=== PATIENT | female | born 1950 | race Caucasian/White ===

== ENCOUNTER → 2017-11-09 | Outpatient (CLI) | payer MEDICARE ==
--- NOTE | 2017-11-10 10:03 | MM ---
Reason for exam: screening (asymptomatic). Last mammogram was performed 1 year and 4 months ago. History: Family history of breast cancer in mother at age 72 and breast cancer in sister at age 62. Physical Findings: A clinical breast exam by your physician is recommended on an annual basis and results should be correlated with mammographic findings. MG 3D Screening Mammo W/Cad Bilateral CC and MLO view(s) were taken. Prior study comparison: June 26, 2016, bilateral MG screening mammo w CAD. August 27, 2015, right breast MG 3d diag mammo w/cad RT. The breast tissue is heterogeneously dense. This may lower the sensitivity of mammography. There is no discrete abnormality. ASSESSMENT: Negative, BI-RAD 1 RECOMMENDATION: Routine screening mammogram of both breasts in 1 year.
== END | disposition home or self-care (01) ==
LOC: RADMAMWWP 07:18
PROVIDERS: ATTEND Family Medicine
DX: Z12.31 Encounter for screening mammogram for malignant neoplasm of breast (principal)
CPT/HCPCS: 77063; 77067

== ENCOUNTER → 2019-03-31 | Outpatient (CLI) | payer MEDICARE ==
--- NOTE | 2019-04-01 09:46 | MM ---
Reason for exam: screening (asymptomatic). Last mammogram was performed 1 year and 5 months ago. History: Family history of breast cancer in mother at age 72 and breast cancer in sister at age 62. Physical Findings: A clinical breast exam by your physician is recommended on an annual basis and results should be correlated with mammographic findings. MG 3D Screening Mammo W/Cad Bilateral CC and MLO view(s) were taken. Prior study comparison: November 09, 2017, bilateral MG 3d screening mammo w/cad. June 26, 2016, bilateral MG screening mammo w CAD. There are scattered fibroglandular densities. Stable benign calcifications. No suspicious abnormality. Unchanged previously work up right superior posterior depth asymmetry. No significant changes when compared with prior studies. ASSESSMENT: Benign, BI-RAD 2 RECOMMENDATION: Routine screening mammogram of both breasts in 1 year.
== END | disposition home or self-care (01) ==
LOC: RADMAMWWP 07:31
PROVIDERS: ATTEND Family Medicine
DX: Z12.31 Encounter for screening mammogram for malignant neoplasm of breast (principal)
CPT/HCPCS: 77063; 77067

== ENCOUNTER 2019-09-28 08:47 | Day surgery (SDC) | payer MEDICARE ==
[2019-09-26 08:21] VITALS: BMI 27.0
[~2019-09-28 08:47] MED LIST: LACTATED RINGERS 1,000 ML IV SCH; LIDOCAINE 1% (10MG/ML) FOR IV START INTRADERMA PRN
[2019-09-28 09:31] VITALS: TEMP 97.7
[2019-09-28] MEDS ORDERED: LIDOCAINE 1% INJ 10MG/ML (20 ML MDV) ONE (09:59)
[2019-09-28] MEDS ORDERED: PROPOFOL 10 MG/ML 20 ML VIAL IV ONE (09:59)
--- NOTE | 2019-09-28 10:20 | P.PCN ---
Date of Procedure: 09/28/19 Procedure(s) Performed: Brief history: Patient is a pleasant 69-year-old white female scheduled for an elective upper endoscopy as well as colonoscopy as a part of evaluation of intermittent dysphagia to solid for the last 6 months duration. She has the symptoms 3-4 times a week. She is also scheduled for a screening colonoscopy today Procedure performed: Esophagogastroduodenoscopy with biopsy Colonoscopy with biopsy and snare polypectomy Preoperative diagnosis: Intermittent solid food dysphagia Screening for colon cancer Anesthesia: MAC Procedure: After informed consent was obtained from the patient was brought into the endoscopy unit and IV sedation was administered by anesthesia under continuous monitoring. Initially upper endoscopy was done. The Olympus GF 160 video endoscope was inserted inserted into the mouth and esophagus intubated without any difficulty and was gradually advanced into the stomach and duodenum and carefully examined. The bulb and second part of the duodenum appeared normal. The scope was then withdrawn into the stomach adequately insufflated with air and upon careful examination the antrum had mild gastritis and biopsies were done from this area. The body, cardia and fundus appeared normal. The scope was then withdrawn into the esophagus. The GE junction was located at 35 cm from the incisors. There was early distal esophageal structure noted. There were multiple erosions and once a fissure ulceration at the GE junction consistent with LA grade C reflux esophagitis. Rest of esophagus appeared normal and the patient tolerated the procedure well. At this time the patient continued to remain sedation. Initial digital rectal examination was normal. Olympus CF 160 video colonoscope was then inserted into the rectum and gradually advanced to the cecum without any difficulty. Careful examination was performed as the scope was gradually being withdrawn. The prep was excellent. The cecum was normal. In the ascending colon there was a 5 mm flat polyp that was removed by snare polypectomy. Rest of the ascending colon, transverse colon, descending colon, rectum appeared normal. In the sigmoid colon between 20-25 cm from the anal was there was mild patchy areas of erythema noted in the vicinity of sigmoid diverticulosis and biopsies were done to evaluate for diverticular related colitis. Retroflexion was performed in the rectum and all internal hemorrhoids were noted. Patient tolerated the procedure well. Impression: 1. Upper endoscopy revealed linear erosions and ulcerations in the distal esophagus consistent with LA grade C reflux esophagitis and early distal esophageal stricture/small size hiatal hernia 2. Colonoscopy revealed a 5 mm flat ascending colon polyp status post polypectomy and mild sigmoid colitis/diverticulosis. Small internal hemorrhoids seen Recommendations: Findings of this examination were discussed with the patient as well as her family. She was advised to follow with the biopsy results. If the biopsy shows an adenoma she can have a repeat colonoscopy in 5 years. In regards to the nature which is related to severe reflux. He'll be started on Prilosec 20 mg daily and she'll be seen in office in 3 months.
[2019-09-28 11:16] VITALS: BP 150/86; PULSE 76; RESP 18
== END 2019-09-28 11:21 | disposition home or self-care (01) ==
LOC: ORWHC2ENDO 08:47
PROVIDERS: ATTEND Internal Medicine Gastroenterology
DX: Z12.11 Encounter for screening for malignant neoplasm of colon (principal); R13.10 Dysphagia, unspecified; K22.10 Ulcer of esophagus without bleeding; K52.9 Noninfective gastroenteritis and colitis, unspecified; K63.5 Polyp of colon; K29.50 Unspecified chronic gastritis without bleeding; K22.2 Esophageal obstruction; K57.30 Diverticulosis of large intestine without perforation or abscess without bleeding; K64.8 Other hemorrhoids; K44.9 Diaphragmatic hernia without obstruction or gangrene; Z79.899 Other long term (current) drug therapy; G25.81 Restless legs syndrome
CPT/HCPCS: 45385; 45380; 43239; 88305; J2001; J2704

== ENCOUNTER → 2019-10-13 | Outpatient (CLI) | payer MEDICARE ==
--- NOTE | 2019-10-13 11:09 | CT ---
EXAMINATION TYPE: CT abdomen pelvis wo con DATE OF EXAM: 10/13/2019 HISTORY: Generalized pelvic pain, Diverticular disease of colon CT DLP: 365 mGycm. Automated Exposure Control for Dose Reduction was Utilized. TECHNIQUE: CT scan of the abdomen and pelvis is performed without oral or IV contrast. COMPARISON: NONE FINDINGS: Within the limitations of a non-contrast study, the following observations are made. LUNG BASES: There is left basilar linear scarring and/or atelectasis. LIVER/GB: Roughly 1 cm hypodense lesions in the periphery of the hepatic dome axial image 31 favor si mple thin-walled cysts. PANCREAS: No significant abnormality is seen. SPLEEN: No significant abnormality is seen. ADRENALS: No significant abnormality is seen. KIDNEYS: There is single nonobstructing 1 to 2 mm calculus midpole level coronal image 51. No right-s ided renal calculus. No hydronephrosis seen bilaterally. No intraluminal calculus and poorly distende d bladder. Scattered inferior bilateral pelvic phleboliths. BOWEL: Suboptimal evaluation of bowel without enteric contrast. Small hiatal hernia. No suspicious sm all or large bowel dilatation. Appendix not seen with certainty but no surrounding inflammatory nguyen e in low-lying cecum into the right pelvis noted. Some diverticula in the left and to a greater degre e in the sigmoid colon. Mildly prominent but subcentimeter lymph nodes with tiny degree of mesenteric fat stranding in the left pelvis is thought present. GENITAL ORGANS: Uterus surgically absent or markedly atrophic. Remnant 1.7 cm low dense lesion left o vary axial image 116. LYMPH NODES: No greater than 1cm abdominal or pelvic lymph nodes are appreciated. OSSEOUS STRUCTURES: Metallic artifact from a hip arthroplasty causes streak artifact limiting evaluat ion of pelvic structures. Levoconvex scoliosis centered in the lower thoracic spine. Moderate disc sp sandra narrowing with vacuum disc phenomenon L3-L4 level. OTHER: No significant additional abnormality is seen. IMPRESSION: Distal colonic diverticulosis with perhaps minimal early acute uncomplicated diverticulit is. No bowel obstruction. No other acute findings evident.
== END | disposition home or self-care (01) ==
LOC: RADCTMAIN 10:23
PROVIDERS: ATTEND Nurse Practitioner Adult Health
DX: K57.30 Diverticulosis of large intestine without perforation or abscess without bleeding (principal)
CPT/HCPCS: 74176

== ENCOUNTER → 2020-05-14 | Outpatient (CLI) | payer MEDICARE ==
--- NOTE | 2020-05-15 13:34 | MM ---
Reason for exam: screening (asymptomatic). Last mammogram was performed 1 year and 1 month ago. History: Family history of breast cancer in mother at age 72 and breast cancer in sister at age 62. Physical Findings: A clinical breast exam by your physician is recommended on an annual basis and results should be correlated with mammographic findings. MG 3D Screening Mammo W/Cad Bilateral CC and MLO view(s) were taken. Prior study comparison: March 31, 2019, bilateral MG 3d screening mammo w/cad. November 09, 2017, bilateral MG 3d screening mammo w/cad. The breast tissue is heterogeneously dense. This may lower the sensitivity of mammography. There are benign appearing dystrophic calcifications in the left breast. There is chronic nodularity in the left breast. There is no discrete abnormality. ASSESSMENT: Benign, BI-RAD 2 RECOMMENDATION: Routine screening mammogram of both breasts in 1 year.
== END | disposition home or self-care (01) ==
LOC: RADMAMWWP 07:37
PROVIDERS: ATTEND Family Medicine
DX: Z12.31 Encounter for screening mammogram for malignant neoplasm of breast (principal)
CPT/HCPCS: 77063; 77067

== ENCOUNTER → 2022-02-18 | Outpatient (CLI) | payer MEDICARE ==
--- NOTE | 2022-02-18 08:36 | MM ---
Reason for Exam: Screening (asymptomatic). Last mammogram was performed 1 year(s) and 9 month(s) ago. Patient History: Menarche at age 12. First Full-Term at age 20. Right ovary removed at age 29. Hysterectomy at age 29. Sister had breast cancer, age 62. Mother had breast cancer, age 72. Risk Values: Lacey 5 year model risk: 7.1%. NCI Lifetime model risk: 17.5%. Prior Study Comparison: 11/09/2017 Bilateral Screening Mammogram, [facility]. 03/31/2019 Bilateral Screening Mammogram, [facility]. 05/14/2020 Bilateral Screening Mammogram, [facility]. Tissue Density: There are scattered fibroglandular densities. Findings: Analyzed By CAD. There is no suspicious group of microcalcifications or new suspicious mass in either breast. Stable benign-appearing dystrophic calcification left breast. Chronic nodularity in the left breast. No significant change from prior examination. Overall Assessment: Benign, BI-RAD 2 Management: Screening Mammogram of both breasts in 1 year. A clinical breast exam by your physician is recommended on an annual basis and results should be correlated with mammographic findings. Electronically signed and approved by: Redd Low D.O.
== END | disposition home or self-care (01) ==
LOC: RADMAMWWP 07:09
PROVIDERS: ATTEND Family Medicine
DX: Z12.31 Encounter for screening mammogram for malignant neoplasm of breast (principal)
CPT/HCPCS: 77063; 77067

== ENCOUNTER → 2023-02-19 | Outpatient (CLI) | payer MEDICARE ==
--- NOTE | 2023-02-20 18:55 | MM ---
Reason for Exam: Screening (asymptomatic). Last screening mammogram was performed 12 month(s) ago. Patient History: Menarche at age 12. First Full-Term at age 20. Right ovary removed at age 29. Hysterectomy at age 29. Sister had breast cancer, age 62. Mother had breast cancer, age 72. Risk Values: Lacey 5 year model risk: 7.1%. NCI Lifetime model risk: 16.6%. Prior Study Comparison: 03/31/2019 Bilateral Screening Mammogram, [facility]. 05/14/2020 Bilateral Screening Mammogram, [facility]. 02/18/2022 Bilateral MG 3D screening mammo w/cad, [facility]. Tissue Density: There are scattered fibroglandular densities. Findings: Analyzed By CAD. Low axillary tail lymph nodes on both sides. Unchanged grouped coarse calcifications central outer aspect of the left breast. There is no suspicious group of microcalcifications or new suspicious mass in either breast. Overall Assessment: Benign, BI-RAD 2 Management: Screening Mammogram of both breasts in 1 year. See note below in regards to patient's increased five-year Lacey score. Patient should continue monthly self-breast exams. A clinical breast exam by your physician is recommended on an annual basis. This exam should not preclude additional follow-up of suspicious palpable abnormalities. Note on Lacey scores and lifetime risk: 1. A Lacey score greater than 3% is considered moderate risk. If this is the case, consider specialist referral to assess eligibility for a risk reducing agent. 2. If overall lifetime risk for the development of breast cancer is 20% or higher, the patient may qualify for future screening with alternating mammogram and breast MRI. Electronically signed and approved by: Shiva Lynch M.D. Radiologist
== END | disposition home or self-care (01) ==
LOC: RADMAMWWP 07:08
PROVIDERS: ATTEND Family Medicine
DX: Z12.31 Encounter for screening mammogram for malignant neoplasm of breast (principal); Z80.3 Family history of malignant neoplasm of breast
CPT/HCPCS: 77063; 77067

== ENCOUNTER → 2024-02-03 | Outpatient (CLI) | payer MEDICARE ==
[2024-02-03 15:53] LABS: Basophils # (A) 0.05 X 10*3/uL (0.00-0.10); Basophils % (A) 0.6 %; Eosinophils # (A) 0.84 X 10*3/uL (0.04-0.35); Eosinophils % (A) 10.1 %; HCT 34.6 % (37.2-46.3); HGB 10.7 g/dL (12.0-15.0); Lymphocytes # (A) 1.39 X 10*3/uL (0.90-5.00); Lymphocytes % (A) 16.8 %; MCH 27.9 pg (27.0-32.0); MCHC 30.9 g/dL (32.0-37.0); MCV 90.3 FL (80.0-97.0); Monocytes # (A) 0.76 X 10*3/uL (0.20-1.00); Monocytes % (A) 9.2 %; NRBC Per 100 WBC 0 X 10*3/uL (0.00-0.01); Neutrophils # (A) 5.21 X 10*3/uL (1.80-7.70); Neutrophils % (A) 62.8 %; Platelet Count 268 X 10*3/uL (140-440); RBC 3.83 X 10*6/uL (4.10-5.20); RDW 14.1 % (11.5-14.5); WBC 8.29 X 10*3/uL (4.50-10.00)
[2024-02-03 15:54] LABS: ALT 16 U/L (8-44); AST 17 U/L (13-35); Albumin 3.9 g/dL (3.8-4.9); Alkaline Phosphatase 104 U/L (41-126); BUN/Creat Ratio 13.12 Ratio (12.00-20.00); Blood Urea Nitrogen 10.5 mg/dL (9.0-27.0); Calcium 8.6 mg/dL (8.7-10.3); Carbon Dioxide 27.9 mmol/L (21.6-31.8); Chloride 105 mmol/L (96-109); Globulin 2.3 g/dL (1.6-3.3); Glucose 101 mg/dL (70-110); Potassium 4.2 mmol/L (3.5-5.5); Sodium 142 mmol/L (135-145); Total Bilirubin 0.2 mg/dL (0.3-1.2); Total Protein 6.2 g/dL (6.2-8.2)
== END | disposition home or self-care (01) ==
LOC: LABWHC1 09:49
PROVIDERS: ATTEND Internal Medicine
DX: K52.9 Noninfective gastroenteritis and colitis, unspecified (principal)
CPT/HCPCS: 36415; 80053; 82728; 83540; 83550; 85025

== ENCOUNTER → 2024-07-08 | Outpatient (CLI) | payer MEDICARE ==
--- NOTE | 2024-07-09 00:05 | BD ---
EXAMINATION TYPE: Axial Bone Density DATE OF EXAM: 07/08/2024 CLINICAL HISTORY: 73 years old Female. ICD-10 CODE: N95.9 MENOPAUSAL AND PERIMENOPAUS , Additional History: Height: 63.5 Weight: 170.6 FRAX RISK QUESTIONS: Alcohol (3 or more units per day): no Family History (Parent hip fracture): no Glucocorticoids (More than 3mos): no (Ex: prednisone, prednisolone, methylprednisolone, dexamethasone, and hydrocortisone). History of Fracture in Adulthood: no Secondary Osteoporosis: 1. Type 1 Diabetes: no 2. Hyperthyroidism: no 3. Menopause before 45: yes 4. Malnutrition: no 5. Chronic liver disease: no Rheumatoid Arthritis: no Current Tobacco Use: no RISK FACTORS HISTORY OF: Hip Fracture (Right/Left): no Spine Fracture: no History of Wrist Fracture: no When: Surgery to Spine/Hip(right/left)/Wrist (right/left): RT Hip Replacement When: 2020 MEDICATIONS: Thyroid Medications: no Osteoporosis Medications: no EXAM MEASUREMENTS: Bone mineral densitometry was performed using the [employer] System. Bone mineral density as measured about the Lumbar spine is: ----- L1-L4(G/cm2): 1.409 T Score Values are as follows: ----- L1: 1.2 ----- L2: 1.2 ----- L3: 2.4 ----- L4: 2.3 ----- L1-L4: 1.9 Z Score Values are as follows: ----- L1: 2.6 ----- L2: 2.6 ----- L3: 3.8 ----- L4: 3.7 ----- L1-L4: 3.2 Baseline Study Bone mineral density about the L hip (g/cm2): 1.040 T Score values are as follows: -----L Neck: -0.1 -----L Total: 0.3 Z Score values are as follows: -----L Neck: 1.6 -----L Total: 1.7 Baseline Study FRAX%s: The graph provided illustrates a 7.3% chance for a major osteoporotic fx and a 0.6% chance fo r the hips probability for fx in 10 years time. IMPRESSION: Normal (Values between +1 and -1 indicate normal bone mass). Consider repeating this study in 5 year s or sooner if there is some new clinical indication. NOTE: T-SCORE=SD OF THE YOUNG ADULT MEAN. [facility], , 07/09/2024 12:03 AM
--- NOTE | 2024-07-11 11:04 | MM ---
Reason for Exam: Screening (asymptomatic). Last mammogram was performed 1 year(s) and 5 month(s) ago. Patient History: Menarche at age 12. First Full-Term at age 20. Right ovary removed at age 29. Hysterectomy at age 29. Sister had breast cancer, age 62. Mother had breast cancer, age 72. Risk Values: Lacey 5 year model risk: 7.1%. NCI Lifetime model risk: 15.7%. Prior Study Comparison: 05/14/2020 Bilateral Screening Mammogram, [facility]. 02/18/2022 Bilateral MG 3D screening mammo w/cad, [facility]. 02/19/2023 Bilateral MG 3D screening mammo w/cad, [facility]. Tissue Density: There are scattered areas of fibroglandular density. Findings: Analyzed By CAD. Right breast: There is no suspicious group of microcalcifications or new suspicious mass. Left breast: There is no suspicious group of microcalcifications or new suspicious mass. Benign-appearing calcifications left breast. Overall Assessment: Benign, BI-RAD 2 Management: Screening Mammogram of both breasts in [address] [facility] will attempt to contact patient to return for supplemental views and ultrasound if indicated. Patient should continue monthly self-breast exams. A clinical breast exam by your physician is recommended on an annual basis. This exam should not preclude additional follow-up of suspicious palpable abnormalities. Note on Lacey scores and lifetime risk: 1. A Lacey score greater than 3% is considered moderate risk. If this is the case, consider specialist referral to assess eligibility for a risk reducing agent. 2. If overall lifetime risk for the development of breast cancer is 20% or higher, the patient may qualify for future screening with alternating mammogram and breast MRI. [facility], , 07/11/2024 11:01 AM. Electronically signed and approved by: Shaw Dee DO
== END | disposition home or self-care (01) ==
LOC: RADMAMWWP 07:19
PROVIDERS: ATTEND Internal Medicine
DX: N95.9 Unspecified menopausal and perimenopausal disorder (principal); Z12.31 Encounter for screening mammogram for malignant neoplasm of breast; M81.8 Other osteoporosis without current pathological fracture; Z78.0 Asymptomatic menopausal state; Z80.3 Family history of malignant neoplasm of breast; Z90.721 Acquired absence of ovaries, unilateral; R92.323 Mammographic fibroglandular density, bilateral breasts
CPT/HCPCS: 77063; 77067; 77080

== ENCOUNTER 2025-01-03 12:05 | Inpatient (IN) | payer MEDICARE ==
--- NOTE | 2025-01-03 12:49 | ED ---
General Adult HPI - General Chief complaint: Recheck/Abnormal Lab/Rx Stated complaint: Weakness Time Seen by Provider: 01/03/25 12:07 Source: patient, family, RN notes reviewed, old records reviewed Mode of arrival: wheelchair Limitations: no limitations - History of Present Illness Initial comments: 74-year-old female presenting with weakness and fatigue. Patient had outpatient laboratory testing which showed that she was anemic and was sent to the emergency department. She has been dealing with ongoing colitis and bright red rectal bleeding. She has been following with gastroenterology. Second issue that she is currently dealing with is multiple skin lesions which began as red painful nodules and then become pyogenic and purulent. She has had a fever at home up to 102. She reports cough. No urinary symptoms. - Related Data Home Medications Medication Instructions Recorded Confirmed rOPINIRole HCL [Requip] 2 mg PO BID 09/26/19 09/15/22 Naproxen Sodium [Aleve] 220 mg PO DAILY PRN 09/15/22 09/15/22 Allergies Allergy/AdvReac Type Severity Reaction Status Date / Time No Known Allergies Allergy Verified 01/03/25 12:10 Review of Systems ROS Statement: Those systems with pertinent positive or pertinent negative responses have been documented in the HPI. ROS Other: All systems not noted in ROS Statement are negative. Past Medical History Past Medical History: GERD/Reflux Additional Past Medical History / Comment(s): RLS, BLOOD IN STOOL, hx of polys and IBS History of Any Multi-Drug Resistant Organisms: None Reported Past Surgical History: Back Surgery, Joint Replacement Additional Past Surgical History / Comment(s): TOTAL RIGHT HIP, KURT TOTAL KNEES, Past Anesthesia/Blood Transfusion Reactions: No Reported Reaction Additional Past Anesthesia/Blood Transfusion Reaction / Comment(s): no blood transfusions Past Psychological History: No Psychological Hx Reported Smoking Status: Never smoker Past Alcohol Use History: None Reported, Occasional Past Drug Use History: None Reported - Past Family History Sister(s) Family Medical History: Cancer Additional Family Medical History / Comment(s): BREAST AND UTERINE CANCER General Exam Limitations: no limitations General appearance: alert, in no apparent distress Head exam: Present: atraumatic, normocephalic Eye exam: Present: normal appearance, PERRL Respiratory exam: Present: normal lung sounds bilaterally. Absent: respiratory distress, wheezes Cardiovascular Exam: Present: regular rate, normal rhythm GI/Abdominal exam: Present: soft. Absent: distended, tenderness Neurological exam: Present: alert, oriented X3, CN II-XII intact. Absent: motor sensory deficit Skin exam: Present: warm, dry, other (Multiple pyogenic lesions on the arms and trunk as well as legs.) Course Vital Signs 01/03/25 12:06 Temperature 97.3 F L Pulse Rate 82 Respiratory 18 Rate Blood Pressure 147/76 O2 Sat by Pulse 100 Oximetry Medical Decision Making - Medical Decision Making Was pt. sent in by a medical professional or institution (, [facility], PATTERN MARKING SUPERVISOR, urgent care, hospital, or [place] health care facility...) When possible be specific @ -No Did you speak to anyone other than the patient for history (EMS, parent, family, police, friend...)? What history was obtained from this source @ -No Did you review nursing and triage notes (agree or disagree)? Why? @ -I reviewed and agree with nursing and triage notes Were old charts reviewed (outside hosp., previous admission, EMS record, old EKG, old radiological studies, urgent care reports/EKG's, [place] health [facility] facility records)? Report findings @ -No old charts were reviewed Differential Weakness: Hypoglycemia, shock, sepsis, hyponatremia, anemia, infection, CA, ETOH, adverse medicine reaction, overdose, stroke, this is not meant to be an all-inclusive list. EKG interpreted by me (3pts min.). @Narrow complex rhythm rate of 69, PVC, DC interval 120, QRS duration 88, QTc [address] segment elevation. X-rays interpreted by me (1pt min.). @ -[Chest x-ray negative for acute cardiopulmonary findings CT interpreted by me (1pt min.). @ -None done U/S interpreted by me (1pt. min.). @ -None done What testing was considered but not performed or refused? (CT, X-rays, U/S, labs)? Why? @ -None What meds were considered but not given or refused? Why? @ -None Did you discuss the management of the patient with other professionals (professionals i.e. [employer], PATTERN MARKING SUPERVISOR, lab, RT, psych nurse, drug abuse social worker, warehouse shipping clerk, teacher, chief lending officer, bottle caser)? Give summary @Dr. Macdonald will admit Was smoking cessation discussed for >3mins.? @ -No Was critical care preformed (if so, how long)? @ -No Were there social determinants of health that impacted care today? How? (Homelessness, low income, unemployed, alcoholism, drug addiction, transportation, low edu. Level, literacy, decrease access to med. care, [facility], rehab)? @ -No Was there de-escalation of care discussed even if they declined (Discuss DNR or withdrawal of care, Hospice)? DNR status @ -No What co-morbidities impacted this encounter? (DM, HTN, Smoking, COPD, CAD, Cancer, CVA, ARF, Chemo, Hep., AIDS, mental health diagnosis, sleep apnea, morbid obesity)? @ -History of colitis Was patient admitted / discharged? Hospital course, mention meds given and route, prescriptions, significant lab abnormalities, going to OR and other pertinent info. @74-year-old female presenting for evaluation of lower GI bleed with history of colitis and multiple abscesses throughout her extremities and torso. Patient had fever at home. She does have a mild leukocytosis. Hemoglobin 7.8. Patient does receive blood culture and is started on IV antibiotics. Addition to the blood culture there will be a wound culture. She is admitted with consultations to both gastroenterology and infectious disease. Undiagnosed new problem with uncertain prognosis? @ -No Drug Therapy requiring intensive monitoring for toxicity (Heparin, Nitro, Insulin, Cardizem)? @ -No Were any procedures done? @ -No Diagnosis/symptom? @ -Multiple abscesses. GI bleed with anemia Acute, or Chronic, or Acute on Chronic? @ -[Acute Uncomplicated (without systemic symptoms) or Complicated (systemic symptoms)? @ -Default Side effects of treatment? @ -No Exacerbation, Progression, or Severe Exacerbation? @ -No Poses a threat to life or bodily function? How? (Chest pain, USA, CA, pneumonia, PE, COPD, DKA, ARF, appy, cholecystitis, CVA, Diverticulitis, Homicidal, Suicidal, threat to staff... and all critical care pts) @ -Yes, sepsis, hemorrhagic shock - Lab Data Result diagrams: 01/03/25 13:33 01/03/25 13:33 Lab Results 01/03/25 01/03/25 01/03/25 Range/Units 13:33 13:33 13:33 WBC 10.14 H (4.50-10.00) 10*3/uL RBC 3.13 L (4.10-5.20) 10*6/uL Hgb 7.8 L (12.0-15.0) g/dL Hct 25.6 L (37.2-46.3) % MCV 81.8 (80.0-97.0) fL MCH 24.9 L (27.0-32.0) pg MCHC 30.5 L (32.0-37.0) g/dL Plt Count 358 (140-440) 10*3/uL MPV 10.8 (9.5-12.2) fL Immature Gran % (Auto) 0.9 % Neutrophils % 72.5 % Lymphocytes % 14.7 % Monocytes % 7.8 % Eosinophils % 3.9 % Basophils % 0.2 % Immature Gran # 0.09 H (0.00-0.04) 10*3/uL Neutrophils # 7.35 (1.80-7.70) 10*3/uL Lymphocytes # 1.49 (0.90-5.00) 10*3/uL Monocytes # 0.79 (0.20-1.00) 10*3/uL Eosinophils # 0.40 H (0.04-0.35) 10*3/uL Basophils # 0.02 (0.00-0.10) 10*3/uL PT (10.0-12.5) sec INR (<1.2) APTT (22.0-30.0) sec Sodium 135 L (137-145) mmol/L Potassium 3.9 (3.5-5.1) mmol/L Chloride 104 (98-107) mmol/L Carbon Dioxide 23 (22-30) mmol/L Anion Gap 8 mmol/L BUN 15 (7-17) mg/dL Creatinine 0.75 (0.52-1.04) mg/dL Est GFR (CKD-EPI)AfAm >90 (>60 ml/min/1.73 sqM) Est GFR (CKD-EPI)NonAf 78 (>60 ml/min/1.73 sqM) Glucose 86 (74-99) mg/dL Plasma Lactic Acid Ziyad 1.2 (0.7-2.0) mmol/L Calcium 8.2 L (8.4-10.2) mg/dL Magnesium 2.1 (1.6-2.3) mg/dL Total Bilirubin 0.4 (0.2-1.3) mg/dL AST 15 (14-36) U/L ALT 7 (4-34) U/L Alkaline Phosphatase 116 (38-126) U/L Total Protein 5.5 L (6.3-8.2) g/dL Albumin 2.8 L (3.5-5.0) g/dL 01/03/25 Range/Units 13:39 WBC (4.50-10.00) 10*3/uL RBC (4.10-5.20) 10*6/uL Hgb (12.0-15.0) g/dL Hct (37.2-46.3) % MCV (80.0-97.0) fL MCH (27.0-32.0) pg MCHC (32.0-37.0) g/dL Plt Count (140-440) 10*3/uL MPV (9.5-12.2) fL Immature Gran % (Auto) % Neutrophils % % Lymphocytes % % Monocytes % % Eosinophils % % Basophils % % Immature Gran # (0.00-0.04) 10*3/uL Neutrophils # (1.80-7.70) 10*3/uL Lymphocytes # (0.90-5.00) 10*3/uL Monocytes # (0.20-1.00) 10*3/uL Eosinophils # (0.04-0.35) 10*3/uL Basophils # (0.00-0.10) 10*3/uL PT 11.3 (10.0-12.5) sec INR 1.0 (<1.2) APTT 24.8 (22.0-30.0) sec Sodium (137-145) mmol/L Potassium (3.5-5.1) mmol/L Chloride (98-107) mmol/L Carbon Dioxide (22-30) mmol/L Anion Gap mmol/L BUN (7-17) mg/dL Creatinine (0.52-1.04) mg/dL Est GFR (CKD-EPI)AfAm (>60 ml/min/1.73 sqM) Est GFR (CKD-EPI)NonAf (>60 ml/min/1.73 sqM) Glucose (74-99) mg/dL Plasma Lactic Acid Ziyad (0.7-2.0) mmol/L Calcium (8.4-10.2) mg/dL Magnesium (1.6-2.3) mg/dL Total Bilirubin (0.2-1.3) mg/dL AST (14-36) U/L ALT (4-34) U/L Alkaline Phosphatase (38-126) U/L Total Protein (6.3-8.2) g/dL Albumin (3.5-5.0) g/dL Disposition Clinical Impression: Abscess, Anemia Disposition: ADMITTED IP TO THIS HOSP Condition: Stable Is patient prescribed a controlled substance at d/c from ED?: No Referrals: Francis William MD [Primary Care Provider] - 1-2 days Time of Disposition: 14:38
--- NOTE | 2025-01-03 13:23 | XR ---
EXAMINATION TYPE: XR chest 2V DATE OF EXAM: 01/03/2025 1:10 PM COMPARISON: None. CLINICAL INDICATION: Female, 74 years old with history of Weakness, TECHNIQUE: XR chest 2V view(s) obtained. FINDINGS: The heart size is normal. The pulmonary vasculature is normal. The lungs are clear. IMPRESSION: 1. No acute pulmonary process. [facility], , 01/03/2025 1:20 PM
[2025-01-03 13:51] LABS: Basophils # (A) 0.02 10*3/uL (0.00-0.10); Basophils % (A) 0.2 %; Eosinophils % (A) 3.9 %; HCT 25.6 % (37.2-46.3); HGB 7.8 g/dL (12.0-15.0); Lymphocytes # (A) 1.49 10*3/uL (0.90-5.00); Lymphocytes % (A) 14.7 %; MCH 24.9 pg (27.0-32.0); MCHC 30.5 g/dL (32.0-37.0); MCV 81.8 fL (80.0-97.0); Mean Platelet Volume 10.8 fL (9.5-12.2); Monocytes # (A) 0.79 10*3/uL (0.20-1.00); Monocytes % (A) 7.8 %; Neutrophils # (A) 7.35 10*3/uL (1.80-7.70); Neutrophils % (A) 72.5 %; Platelet Count 358 10*3/uL (140-440); RBC 3.13 10*6/uL (4.10-5.20); RDW 15.1 % (11.5-14.5); WBC 10.14 10*3/uL (4.50-10.00)
[2025-01-03 13:54] LABS: ALT 7 U/L (4-34); AST 15 U/L (14-36); African American GFR (CKD) >90 (>60 ml/min/1.73 sqM); Albumin 2.8 g/dL (3.5-5.0); Alkaline Phosphatase 116 U/L (38-126); Anion Gap 8 mmol/L; Blood Urea Nitrogen 15 mg/dL (7-17); Calcium 8.2 mg/dL (8.4-10.2); Carbon Dioxide 23 mmol/L (22-30); Chloride 104 mmol/L (98-107); Glucose 86 mg/dL (74-99); Magnesium 2.1 mg/dL (1.6-2.3); Non-African American GFR(CKD) 78 (>60 ml/min/1.73 sqM); Sodium 135 mmol/L (137-145); Total Bilirubin 0.4 mg/dL (0.2-1.3); Total Protein 5.5 g/dL (6.3-8.2)
[2025-01-03] MEDS ORDERED: VANCOMYCIN IV PER PHARMACY 1 EACH MISC MISCELLANE PRN (14:04)
[2025-01-03 14:06] LABS: Potassium 3.9 mmol/L (3.5-5.1)
[2025-01-03 14:31] LABS: Partial Thromboplastin Time 24.8 sec (22.0-30.0); Prothrombin Time 11.3 sec (10.0-12.5)
[2025-01-03] MEDS ORDERED: NALOXONE 0.4 MG/ML 1 ML VIAL IV PRN (14:31)
[2025-01-03] MEDS ORDERED: ACETAMINOPHEN TAB 325 MG TAB PO PRN (14:31)
[2025-01-03 15:01] LABS: Appearance,Urine Clear (Clear); Bilirubin,Urine Negative (Negative); Blood,Urine Negative (Negative); Color,Urine Yellow; Glucose,Urine (UA) Negative (Negative); Ketones,Urine Negative (Negative); Leukocyte Esterase,Urine Negative (Negative); Nitrite,Urine Negative (Negative); Protein,Urine Trace (Negative); Specific Gravity,Urine 1.028 (1.001-1.035)
[2025-01-03] MEDS: SODIUM CHLORIDE 0.9% 1,000 ML IV SCH (15:23)
[2025-01-03] MEDS: VANCOMYCIN 1,500 MG in SODIUM CHLORIDE 0.9% 500 ML 500 ML IVPB STA (15:23)
[2025-01-03 19:54] LABS: C Reactive Protein 8.5 mg/dL (<1.0)
[2025-01-03] MEDS: HEPARIN SODIUM,PORCINE 5,000 UNIT/ML 1 ML VIAL SQ SCH (20:14)
--- NOTE | 2025-01-03 20:26 | HP ---
HISTORY AND PHYSICAL CHIEF COMPLAINT: Rectal bleeding as well as multiple subcutaneous swellings. HISTORY OF PRESENT ILLNESS: This 74-year-old woman with a past medical history of multiple medical problems including IBS and possible colitis, was having some rectal bleeding, rather pinkish according to her. The patient also has significant multiple skin lesions for the last 2 weeks. The patient has taken antibiotic outpatient. Because of lack of improvement, the patient came to [facility] and admitted with the rash treatment. There is no history of any fever, rigors, or chills at this time. PAST MEDICAL HISTORY: GERD, IBS. Rest of the history and rest of the chart is also reviewed. HOME MEDICATIONS: Reviewed include Requip. Rest of medications reviewed. ALLERGIES: None known. FAMILY HISTORY: History of breast and uterine cancer. SOCIAL HISTORY: No history of smoking or alcohol. REVIEW OF SYSTEMS: A 14-point review of systems negative except as mentioned earlier. PHYSICAL EXAMINATION: VITAL SIGNS: Pulse is 82, blood pressure 147/76, and respirations 18. HEENT: Conjunctivae normal. CARDIOVASCULAR: S1, S2. RESPIRATIONS: Breath sounds diminished at the bases. No rhonchi. ABDOMEN: Soft, obese, nontender. No mass palpable. LEGS: No edema. No swelling. SKIN: Multiple subcutaneous nodules with some are broken down with tender nodules present. LABORATORY DATA: Hemoglobin 7.8. White count 10.14. ASSESSMENT: 1. Multiple subcutaneous abscesses, possibly MRSA sepsis. 2. Possible pyoderma gangrenosum. 3. Possible Crohn disease. 4. Underlying Crohn disease with the GI bleed. 5. Elevated WBC. 6. Anemia. 7. History of gastroesophageal reflux disease. 8. History of restless legs syndrome. RECOMMENDATIONS: This 74-year-old woman presented with multiple complex medical issues. At this time, I recommended continue the current medications and symptomatic treatment. I would recommend Gastroenterology consultation for possible endoscopes and upper and lower with biopsies and with Infectious Disease and we will obtain cultures, empiric antibiotics initiated. Guarded prognosis because of multiple complex medical problems. See orders for details. I would also recommend a biopsy of the cutaneous lesion, by surgery also. MMODL / IJN: [id number] /
[2025-01-03] MEDS: rOPINIRole HCL 4 MG TABLET PO SCH (20:29)
[2025-01-03] MEDS: HYDROmorphone 0.5 MG/0.5 ML SYRINGE IVP PRN (22:18)
--- NOTE | 2025-01-03 22:20 | P.CONS ---
History of Present Illness - Reason for Consult Consult date: 01/03/25 Multiple abscesses Requesting physician: Shaw Navas - Chief Complaint Weakness multiple skin lesion x days - History of Present Illness Patient is a 74-year-old female with a past medical history significant for reflux osteoarthritis in this patient who did have right hip and bilateral knee replacement presenting to the hospital for evaluation of weakness and fatigue and apparently patient did have outpatient blood work done which shows evidence of anemia patient also been dealing with multiple skin soft tissue swelling ulceration and drainage which apparently started with the right lower back area about 2 weeks ago they spontaneously rupture afterwards the patient has developed swelling and drainage to bilateral lower extremity as well as thigh area which has been draining some purulent material patient been complaining of pain especially to the 1 on the right thigh area to be sharp moderate to severe intense without radiation and did have some purulent drainage patient on presentation to the hospital was afebrile patient did not recall any fever or chills at home patient was not tachycardic hypotensive or hypoxic she did have a white count of 10.14 creatinine 0.75 electrolytes are normal liver isms are normal urine has been negative patient did have blood and local cultures obtained he has been started on vancomycin and ceftriaxone infectious disease was consulted for further management of antibiotic therapy Review of Systems Positive point and negatives has been mentioned in the HPI, complete review of systems was performed and all other systems are negative Past Medical History Past Medical History: GERD/Reflux Additional Past Medical History / Comment(s): RLS, BLOOD IN STOOL, hx of polys and IBS History of Any Multi-Drug Resistant Organisms: None Reported Past Surgical History: Back Surgery, Joint Replacement Additional Past Surgical History / Comment(s): TOTAL RIGHT HIP, KURT TOTAL KNEES, Past Anesthesia/Blood Transfusion Reactions: No Reported Reaction Additional Past Anesthesia/Blood Transfusion Reaction / Comm: no blood transfusions Past Psychological History: No Psychological Hx Reported Smoking Status: Never smoker Past Alcohol Use History: None Reported, Occasional Past Drug Use History: None Reported - Past Family History Sister(s) Family Medical History: Cancer Additional Family Medical History / Comment(s): BREAST AND UTERINE CANCER Medications and Allergies Home Medications Medication Instructions Recorded Confirmed Type rOPINIRole HCL [Requip] 4 mg PO TID 01/03/25 01/03/25 History Allergies Allergy/AdvReac Type Severity Reaction Status Date / Time No Known Allergies Allergy Verified 01/03/25 14:38 Physical Exam Vitals: Vital Signs Temp Pulse Resp BP Pulse Ox 01/03/25 12:06 97.3 F L 82 18 147/76 100 Intake and Output 01/03/25 01/03/25 01/03/25 06:59 14:59 22:59 Other: Weight 78.925 kg GENERAL DESCRIPTION: Elderly female lying in bed, no distress. No tachypnea or accessory muscle of respiration use. HEENT: Shows Pallor , no scleral icterus. Oral mucous membrane is dry. No pharyngeal erythema or thrush NECK: Trachea central, no thyromegaly. LUNGS: Unlabored breathing. Clear to auscultation anteriorly. No wheeze or crackle. HEART: S1, S2, regular rate and rhythm. No loud murmur ABDOMEN: Soft, no tenderness , guarding or rigidity, no organomegaly EXTREMITIES: No edema of feet. SKIN: Patient did have multiple skin ulceration as well as abscess especially to the right upper back right and left upper arm we did have some mucopurulent drainage NEUROLOGICAL: The patient is awake, alert, oriented x3, mood and affect normal. Results CBC & Chem 7: 01/03/25 13:33 01/03/25 13:33 Labs: Abnormal Lab Results - Last 24 Hours (Table) 01/03/25 01/03/25 01/03/25 Range/Units 13:33 13:33 14:49 WBC 10.14 H (4.50-10.00) 10*3/uL RBC 3.13 L (4.10-5.20) 10*6/uL Hgb 7.8 L (12.0-15.0) g/dL Hct 25.6 L (37.2-46.3) % MCH 24.9 L (27.0-32.0) pg MCHC 30.5 L (32.0-37.0) g/dL Immature Gran # 0.09 H (0.00-0.04) 10*3/uL Eosinophils # 0.40 H (0.04-0.35) 10*3/uL Sodium 135 L (137-145) mmol/L Calcium 8.2 L (8.4-10.2) mg/dL Total Protein 5.5 L (6.3-8.2) g/dL Albumin 2.8 L (3.5-5.0) g/dL Urine Protein Trace H (Negative) Assessment and Plan (1) Abscess Current Visit: Yes Status: Acute Code(s): L02.91 - CUTANEOUS ABSCESS, UNSPECIFIED SNOMED Code(s): 263378831 Plan: 1patient with multiple skin abscesses apparently started following the right upper back that has spontaneous rupture now with multiple small abscesses to the bilateral upper extremity and right thigh area highly clinically suspicious for Staphylococcus skin soft tissue infection 2-blood and local cultures-has been obtained that will guide further antibiotic therapy 3-we will empirically treat with vancomycin pharmacy to dose while waiting for the culture to finalize Multiple question concern answered We will follow on clinical condition and cultures to further adjust medication if needed Thank you for this consultation we will follow the patient along with you Dictation was produced using [employer] dictation software. please excuse any grammatical, word or spelling errors. Time with Patient: Greater than 30
[2025-01-04 02:49] LABS: Rheumatoid Factor, Qnt <15 IU/mL (0-15)
[2025-01-04] MEDS: HYDROcodone/APAP 5-325MG 1 EACH TAB PO PRN (06:02)
[2025-01-04 06:37] LABS: Basophils # (A) 0.02 10*3/uL (0.00-0.10); Basophils % (A) 0.2 %; Eosinophils # (A) 0.55 10*3/uL (0.04-0.35); Eosinophils % (A) 6.6 %; HCT 24.1 % (37.2-46.3); HGB 7.2 g/dL (12.0-15.0); Lymphocytes # (A) 1.01 10*3/uL (0.90-5.00); Lymphocytes % (A) 12.1 %; MCH 24.9 pg (27.0-32.0); MCHC 29.9 g/dL (32.0-37.0); MCV 83.4 fL (80.0-97.0); Mean Platelet Volume 9.6 fL (9.5-12.2); Monocytes # (A) 0.56 10*3/uL (0.20-1.00); Monocytes % (A) 6.7 %; Neutrophils # (A) 6.18 10*3/uL (1.80-7.70); Neutrophils % (A) 73.7 %; Platelet Count 369 10*3/uL (140-440); RBC 2.89 10*6/uL (4.10-5.20); RDW 15.2 % (11.5-14.5); WBC 8.38 10*3/uL (4.50-10.00)
[2025-01-04 07:00] LABS: African American GFR (CKD) >90 (>60 ml/min/1.73 sqM); Anion Gap 6 mmol/L; Blood Urea Nitrogen 11 mg/dL (7-17); Calcium 7.9 mg/dL (8.4-10.2); Carbon Dioxide 27 mmol/L (22-30); Chloride 101 mmol/L (98-107); Glucose 86 mg/dL (74-99); Non-African American GFR(CKD) 86 (>60 ml/min/1.73 sqM); Potassium 3.7 mmol/L (3.5-5.1); Sodium 134 mmol/L (137-145)
[2025-01-04] MEDS: VANCOMYCIN 1,500 MG in SODIUM CHLORIDE 0.9% 500 ML 500 ML IVPB SCH (10:16)
[2025-01-04 11:00] LABS: % Iron Saturation 5.7 (12.00-45.00); Ferritin 78.4 ng/mL (10.0-291.0)
--- NOTE | 2025-01-04 11:08 | P.CONS ---
History of Present Illness - Reason for Consult Consult date: 01/04/25 GI bleed Requesting physician: Shaw Navas - Chief Complaint Rectal bleeding, fever, skin abscess - History of Present Illness This a pleasant 74-year-old female who has followed with Dr. Ladd the past for IBS, who had presented to the emergency department directed by her physician secondary to outpatient blood work and was told that she was anemic. Patient st ates that she has been having teeny pinkish tinge loose stool, mucus. This has been ongoing since September. Patient also is presenting with multiple abscesses on her body which she is unsure what it is because from. Infectious diseases following. She states that she does have a decreased appetite, some nausea and occasional vomiting. States she is having about 4-5 loose bowel movements daily. Last colonoscopy was in August [address] Ladd with findings of mild patchy areas of erythema in the sigmoid colon extending from the anal verge in the vicinity diverticulosis suspicious of diverticular related sigmoid colon colitis. Scattered sigmoid diverticulosis. No evidence of colorectal neoplasia. Biopsies had shown mild active colitis with features of chronicity. Patient denies any significant abdominal pain. She recently started her mesalamine suppositories about a week ago last 1 on Thursday secondary to her symptoms. She was scheduled to see Willow Zheng HEAD BOYS GOLF COACH with gastroenterology today. Admitting labs WBC 8.3 hemoglobin 7.2 hematocrit 24 platelet count 369,000 sed rate was 64 INR 1.0 sodium 134 potassium 3.7 BUN 11 total bilirubin 0.4 AST 15 ALT 7 alkaline phosphatase 116 creatinine 0.6 CRP 8.5 Review of Systems REVIEW OF SYSTEMS: CARDIOPULMONARY: No chest pain or shortness of breath. Gastrointestinal: No abdominal pain. Intermittent nausea and vomiting, patient reports vomiting is mostly mucus. No hematemesis, coffee-ground emesis. [place] tinge mucus from rectum and stool. Loose stools 4-5 a day. GENITOURINARY: No dysuria or hematuria. MUSCULOSKELETAL: Reports normal range of motion., Joint pain. SKIN: No rashes. No jaundice. ENDOCRINE: No chills, fevers. No excessive weight gain or loss. No polydipsia or polyuria. PSYCHIATRIC: Unremarkable. NEUROLOGY: No change in mental status. Denies dizziness, headache. ENT: Vision unremarkable. CONSTITUTIONAL: No recent weight loss. Decreased appetite secondary to feeling full, nothing sounds good. No fever, chills, night sweats. Past Medical History Past Medical History: GERD/Reflux Additional Past Medical History / Comment(s): RLS, BLOOD IN STOOL, hx of polys and IBS History of Any Multi-Drug Resistant Organisms: None Reported Past Surgical History: Back Surgery, Joint Replacement Additional Past Surgical History / Comment(s): TOTAL RIGHT HIP, KURT TOTAL KNEES, Past Anesthesia/Blood Transfusion Reactions: No Reported Reaction Additional Past Anesthesia/Blood Transfusion Reaction / Comm: no blood transfusions Past Psychological History: No Psychological Hx Reported Smoking Status: Never smoker Past Alcohol Use History: None Reported, Occasional Past Drug Use History: None Reported - Past Family History Sister(s) Family Medical History: Cancer Additional Family Medical History / Comment(s): BREAST AND UTERINE CANCER Medications and Allergies Home Medications Medication Instructions Recorded Confirmed Type rOPINIRole HCL [Requip] 4 mg PO TID 01/03/25 01/03/25 History Allergies Allergy/AdvReac Type Severity Reaction Status Date / Time No Known Allergies Allergy Verified 01/03/25 14:38 Physical Exam Vitals: Vital Signs Temp Pulse Resp BP Pulse Ox 01/04/25 07:39 97.9 F 76 19 113/63 96 01/04/25 06:41 80 17 119/57 01/04/25 02:06 72 16 121/60 97 01/03/25 22:17 74 18 121/58 99 01/03/25 19:00 78 18 136/78 98 01/03/25 16:25 89 18 138/64 100 01/03/25 12:06 97.3 F L 82 18 147/76 100 General appearance: The patient is alert, oriented, appears in no acute distress. HET: Head is normocephalic and atraumatic. Conjunctiva pink. Sclera anicteric. Neck: Supple without lymphadenopathy. Trachea midline. Heart: Regular. Lungs: Equal expansion, normal respiratory effort. Abdomen: Soft, nontender, nondistended. Skin: No rashes. No jaundice. Extremities: Normal skin color and turgor. No pedal edema. Neurological: No focal deficits. Alert and oriented x3. Results CBC & Chem 7: 01/04/25 05:46 01/04/25 05:46 Labs: Abnormal Lab Results - Last 24 Hours (Table) 01/03/25 01/03/25 01/03/25 Range/Units 13:33 13:33 13:33 WBC 10.14 H (4.50-10.00) 10*3/uL RBC 3.13 L (4.10-5.20) 10*6/uL Hgb 7.8 L (12.0-15.0) g/dL Hct 25.6 L (37.2-46.3) % MCH 24.9 L (27.0-32.0) pg MCHC 30.5 L (32.0-37.0) g/dL Immature Gran # 0.09 H (0.00-0.04) 10*3/uL Eosinophils # 0.40 H (0.04-0.35) 10*3/uL ESR 64 H (0-30) mm/Hr Sodium 135 L (137-145) mmol/L Calcium 8.2 L (8.4-10.2) mg/dL C-Reactive Protein (<1.0) mg/dL Total Protein 5.5 L (6.3-8.2) g/dL Albumin 2.8 L (3.5-5.0) g/dL Urine Protein (Negative) 01/03/25 01/03/25 01/04/25 Range/Units 13:39 14:49 05:46 WBC (4.50-10.00) 10*3/uL RBC 2.89 L (4.10-5.20) 10*6/uL Hgb 7.2 L (12.0-15.0) g/dL Hct 24.1 L (37.2-46.3) % MCH 24.9 L (27.0-32.0) pg MCHC 29.9 L (32.0-37.0) g/dL Immature Gran # 0.06 H (0.00-0.04) 10*3/uL Eosinophils # 0.55 H (0.04-0.35) 10*3/uL ESR (0-30) mm/Hr Sodium (137-145) mmol/L Calcium (8.4-10.2) mg/dL C-Reactive Protein 8.5 H (<1.0) mg/dL Total Protein (6.3-8.2) g/dL Albumin (3.5-5.0) g/dL Urine Protein Trace H (Negative) 01/04/25 Range/Units 05:46 WBC (4.50-10.00) 10*3/uL RBC (4.10-5.20) 10*6/uL Hgb (12.0-15.0) g/dL Hct (37.2-46.3) % MCH (27.0-32.0) pg MCHC (32.0-37.0) g/dL Immature Gran # (0.00-0.04) 10*3/uL Eosinophils # (0.04-0.35) 10*3/uL ESR (0-30) mm/Hr Sodium 134 L (137-145) mmol/L Calcium 7.9 L (8.4-10.2) mg/dL C-Reactive Protein (<1.0) mg/dL Total Protein (6.3-8.2) g/dL Albumin (3.5-5.0) g/dL Urine Protein (Negative) Assessment and Plan (1) Rectal bleeding Narrative/Plan: 74-year-old female presenting with anemia and pink-tinged mucus and loose stools for the last 3 months with up to 4-5 loose bowel movements daily. Last colonoscopy 2 years ago showing mild colitis thought to be secondary to diverticulosis however pathology did come back with some chronicity. Need to consider possible IBS especially in setting of elevated inflammatory markers. Current Visit: Yes Status: Acute Code(s): K62.5 - HEMORRHAGE OF ANUS AND RECTUM SNOMED Code(s): 34098699 (2) Diarrhea Current Visit: Yes Status: Acute Code(s): R19.7 - DIARRHEA, UNSPECIFIED SNOMED Code(s): 35926045 (3) Anemia Current Visit: Yes Status: Acute Code(s): D64.9 - ANEMIA, UNSPECIFIED SNOMED Code(s): 230433655 (4) GERD (gastroesophageal reflux disease) Current Visit: Yes Status: Acute Code(s): K21.9 - GASTRO-ESOPHAGEAL REFLUX DISEASE WITHOUT ESOPHAGITIS SNOMED Code(s): 748511714 (5) Skin pustule Narrative/Plan: Multiple skin pustules located on arms legs and upper thighs. Unclear etiology however there is lesion on lower extremity that appears to be possible erythema nodosum. Current Visit: Yes Status: Acute Code(s): L08.9 - LOCAL INFECTION OF THE SKIN AND SUBCUTANEOUS TISSUE, UNSP SNOMED Code(s): 532039656 Plan: 1. Continue symptomatic and supportive care 2. Daily CBC transfuse for hemoglobin less than 7. Iron studies ordered 3. Protonix 40 mg daily for GI prophylaxis 4. Clear liquid diet, n.p.o. after midnight 5. Continue with recommendations from infectious disease and treatment of multiple pustules 6. Consider dermatology consultation 7. Plan for colonoscopy tomorrow early evening, start bowel prep in the morning may complete up until 12 PM Thank you for this consultation, we will continue to follow. Dr. Zena Ladd I agree with the dictator's note, documented as a scribe by Jimena Leach.
--- NOTE | 2025-01-04 11:46 | P.GSCN ---
History of Present Illness Consult date: 01/04/25 History of present illness: CHIEF COMPLAINT: GI bleed and multiple skin abscesses HISTORY OF PRESENT ILLNESS: This is a 74-year-old female who presented the hospital with complaints of bright red blood per rectum and multiple skin abscesses. Patient noted the skin abscesses started about 3 weeks ago. She reports they started on her back and now she has them on her arms and her legs. The abscesses form like a blister and then they express blood and pus. Patient does report that the skin abscesses are painful. Patient did report a fever of 102 on Thursday. She does report having some nausea and occasional episodes of vomiting. She denies any sick contacts. Denies any recent travel. Denies any exposure to new substances. She is on antibiotics followed by infectious disease. She is also followed by GI service regarding the GI bleed. Surgical service has been consulted for skin biopsy of the skin ulcerations. Last colonoscopy 2 years ago reported colitis. PAST MEDICAL HISTORY: See below PAST SURGICAL HISTORY: See below MEDICATIONS: See below ALLERGIES: See below SOCIAL HISTORY: No illicit drug use. REVIEW OF SYSTEMS: CONSTITUTIONAL: Denies fever or chills. HEENT: Denies blurred vision, vision changes, or eye pain. Denies hemoptysis CARDIOVASCULAR: Denies chest pain or pressure. RESPIRATORY: No shortness of breath. GASTROINTESTINAL: See HPI for pertinent findings HEMATOLOGIC: Denies bleeding disorders. GENITOURINARY: Denies any blood in urine or increased urinary frequency. SKIN: Denies pruitis. Denies rash. PHYSICAL EXAM: VITAL SIGNS: Reviewed GENERAL: Well-developed in no acute distress. HEENT: No sclera icterus. Extraocular movements grossly intact. Moist buccal mucosa. Head is atraumatic, normocephalic. No nasal drainage. ABDOMEN: Soft. Nondistended. Nontender NEUROLOGIC: Alert and oriented. Cranial nerves II through XII grossly intact. SKIN: Skin lesions with 2 noted on the back there are skin lesions on the arms as well as the right upper leg hip area as well as left leg. The skin lesions formed blisters some of them have broke open with a purulent fluid. LABORATORY DATA: WBC 10.14 down to 8.38 Hgb 7.2 platelets 369 Sodium 134 potassium 3.7 creatinine 0.69 Iron 11 IMAGING: ASSESSMENT: 1. Multiple skin lesions noted on the back arms and upper legs PLAN: - Dr. Vaca will do a bedside biopsy of a skin lesion tomorrow - Antibiotics per ID service - Anemia and GI bleed workup per GI service Physician Steamfitter Apprentice note has been reviewed by physician. Signing provider agrees with the documented findings, assessment, and plan of care. Working I am just Past Medical History Past Medical History: GERD/Reflux Additional Past Medical History / Comment(s): RLS, BLOOD IN STOOL, hx of polys and IBS History of Any Multi-Drug Resistant Organisms: None Reported Past Surgical History: Back Surgery, Joint Replacement Additional Past Surgical History / Comment(s): TOTAL RIGHT HIP, KURT TOTAL KNEES, Past Anesthesia/Blood Transfusion Reactions: No Reported Reaction Additional Past Anesthesia/Blood Transfusion Reaction / Comm: no blood transfusions Past Psychological History: No Psychological Hx Reported Smoking Status: Never smoker Past Alcohol Use History: None Reported, Occasional Past Drug Use History: None Reported - Past Family History Sister(s) Family Medical History: Cancer Additional Family Medical History / Comment(s): BREAST AND UTERINE CANCER Medications and Allergies Home Medications Medication Instructions Recorded Confirmed Type rOPINIRole HCL [Requip] 4 mg PO TID 01/03/25 01/03/25 History Allergies Allergy/AdvReac Type Severity Reaction Status Date / Time No Known Allergies Allergy Verified 01/03/25 14:38 Surgical - Exam Vital Signs Temp Pulse Resp BP Pulse Ox 97.3 F L 82 18 147/76 100 01/03/25 12:06 01/03/25 12:06 01/03/25 12:06 01/03/25 12:06 01/03/25 12:06 Results - Labs 01/04/25 05:46 01/04/25 05:46 Abnormal Lab Results - Last 24 Hours (Table) 01/03/25 01/03/25 01/03/25 Range/Units 13:33 13:33 13:33 WBC 10.14 H (4.50-10.00) 10*3/uL RBC 3.13 L (4.10-5.20) 10*6/uL Hgb 7.8 L (12.0-15.0) g/dL Hct 25.6 L (37.2-46.3) % MCH 24.9 L (27.0-32.0) pg MCHC 30.5 L (32.0-37.0) g/dL Immature Gran # 0.09 H (0.00-0.04) 10*3/uL Eosinophils # 0.40 H (0.04-0.35) 10*3/uL ESR 64 H (0-30) mm/Hr Sodium 135 L (137-145) mmol/L Calcium 8.2 L (8.4-10.2) mg/dL Iron (50-170) UG/DL TIBC (228-460) UG/DL % Saturation (12.00-45.00) Transferrin (204.0-354.0) mg/dL C-Reactive Protein (<1.0) mg/dL Total Protein 5.5 L (6.3-8.2) g/dL Albumin 2.8 L (3.5-5.0) g/dL Urine Protein (Negative) 01/03/25 01/03/25 01/04/25 Range/Units 13:39 14:49 05:46 WBC (4.50-10.00) 10*3/uL RBC 2.89 L (4.10-5.20) 10*6/uL Hgb 7.2 L (12.0-15.0) g/dL Hct 24.1 L (37.2-46.3) % MCH 24.9 L (27.0-32.0) pg MCHC 29.9 L (32.0-37.0) g/dL Immature Gran # 0.06 H (0.00-0.04) 10*3/uL Eosinophils # 0.55 H (0.04-0.35) 10*3/uL ESR (0-30) mm/Hr Sodium (137-145) mmol/L Calcium (8.4-10.2) mg/dL Iron (50-170) UG/DL TIBC (228-460) UG/DL % Saturation (12.00-45.00) Transferrin (204.0-354.0) mg/dL C-Reactive Protein 8.5 H (<1.0) mg/dL Total Protein (6.3-8.2) g/dL Albumin (3.5-5.0) g/dL Urine Protein Trace H (Negative) 01/04/25 01/04/25 Range/Units 05:46 05:46 WBC (4.50-10.00) 10*3/uL RBC (4.10-5.20) 10*6/uL Hgb (12.0-15.0) g/dL Hct (37.2-46.3) % MCH (27.0-32.0) pg MCHC (32.0-37.0) g/dL Immature Gran # (0.00-0.04) 10*3/uL Eosinophils # (0.04-0.35) 10*3/uL ESR (0-30) mm/Hr Sodium 134 L (137-145) mmol/L Calcium 7.9 L (8.4-10.2) mg/dL Iron 11 L (50-170) UG/DL TIBC 193 L (228-460) UG/DL % Saturation 5.70 L (12.00-45.00) Transferrin 138.0 L (204.0-354.0) mg/dL C-Reactive Protein (<1.0) mg/dL Total Protein (6.3-8.2) g/dL Albumin (3.5-5.0) g/dL Urine Protein (Negative) Diabetes panel 01/03/25 01/04/25 Range/Units 13:33 05:46 Sodium 135 L 134 L (137-145) mmol/L Potassium 3.9 3.7 (3.5-5.1) mmol/L Chloride 104 101 (98-107) mmol/L Carbon Dioxide 23 27 (22-30) mmol/L BUN 15 11 (7-17) mg/dL Creatinine 0.75 0.69 (0.52-1.04) mg/dL Glucose 86 86 (74-99) mg/dL Calcium 8.2 L 7.9 L (8.4-10.2) mg/dL AST 15 (14-36) U/L ALT 7 (4-34) U/L Alkaline Phosphatase 116 (38-126) U/L Total Protein 5.5 L (6.3-8.2) g/dL Albumin 2.8 L (3.5-5.0) g/dL Calcium panel 01/03/25 01/04/25 Range/Units 13:33 05:46 Calcium 8.2 L 7.9 L (8.4-10.2) mg/dL Albumin 2.8 L (3.5-5.0) g/dL Pituitary panel 01/03/25 01/04/25 Range/Units 13:33 05:46 Sodium 135 L 134 L (137-145) mmol/L Potassium 3.9 3.7 (3.5-5.1) mmol/L Chloride 104 101 (98-107) mmol/L Carbon Dioxide 23 27 (22-30) mmol/L BUN 15 11 (7-17) mg/dL Creatinine 0.75 0.69 (0.52-1.04) mg/dL Glucose 86 86 (74-99) mg/dL Calcium 8.2 L 7.9 L (8.4-10.2) mg/dL Adrenal panel 01/03/25 01/04/25 Range/Units 13:33 05:46 Sodium 135 L 134 L (137-145) mmol/L Potassium 3.9 3.7 (3.5-5.1) mmol/L Chloride 104 101 (98-107) mmol/L Carbon Dioxide 23 27 (22-30) mmol/L BUN 15 11 (7-17) mg/dL Creatinine 0.75 0.69 (0.52-1.04) mg/dL Glucose 86 86 (74-99) mg/dL Calcium 8.2 L 7.9 L (8.4-10.2) mg/dL Total Bilirubin 0.4 (0.2-1.3) mg/dL AST 15 (14-36) U/L ALT 7 (4-34) U/L Alkaline Phosphatase 116 (38-126) U/L Total Protein 5.5 L (6.3-8.2) g/dL Albumin 2.8 L (3.5-5.0) g/dL
--- NOTE | 2025-01-04 12:22 | P.PN ---
Subjective Progress Note Date: 01/04/25 Principal diagnosis: Reason for follow-up is multiple skin abscesses Patient is a 74-year-old female with a past medical history significant for reflux osteoarthritis in this patient who did have right hip and bilateral knee replacement presenting to the hospital for evaluation of weakness and fatigue, patient did have multiple skin abscesses prompting this consultat ion. On today's evaluation that is 01/04/2025,the patient denies any fever or any chills, patient is breathing comfortably on room air, the patient denies chest pain shortness of breath and no significant cough, patient denies abdominal pain, no nausea vomiting or diarrhea. Patient pain to the right hip area lesion has decreased after it popped and started to drain. Patient white count is down to 8.38, creatinine 0.69 cultures currently pending Objective - Vital Signs Vital signs: Vital Signs Temp 97.9 F 01/04/25 07:39 Pulse 79 01/04/25 09:37 Resp 16 01/04/25 09:37 BP 113/58 01/04/25 09:37 Pulse Ox 99 01/04/25 09:37 FiO2 Intake & Output 01/03/25 01/04/25 01/04/25 18:59 06:59 18:59 Weight 78.925 kg - Exam GENERAL DESCRIPTION: An elderly female lying in bed in no distress RESPIRATORY SYSTEM: Unlabored breathing , decreased breath sounds at bases HEART: S1 S2 regular rate and rhythm , ABDOMEN: Soft , no tenderness EXTREMITIES: Small abscesses on the bilateral forearm drying out - Labs CBC & Chem 7: 01/04/25 05:46 01/04/25 05:46 Labs: Abnormal Lab Results - Last 24 Hours (Table) 01/03/25 01/03/25 01/03/25 Range/Units 13:33 13:33 13:33 WBC 10.14 H (4.50-10.00) 10*3/uL RBC 3.13 L (4.10-5.20) 10*6/uL Hgb 7.8 L (12.0-15.0) g/dL Hct 25.6 L (37.2-46.3) % MCH 24.9 L (27.0-32.0) pg MCHC 30.5 L (32.0-37.0) g/dL Immature Gran # 0.09 H (0.00-0.04) 10*3/uL Eosinophils # 0.40 H (0.04-0.35) 10*3/uL ESR 64 H (0-30) mm/Hr Sodium 135 L (137-145) mmol/L Calcium 8.2 L (8.4-10.2) mg/dL C-Reactive Protein (<1.0) mg/dL Total Protein 5.5 L (6.3-8.2) g/dL Albumin 2.8 L (3.5-5.0) g/dL Urine Protein (Negative) 01/03/25 01/03/25 01/04/25 Range/Units 13:39 14:49 05:46 WBC (4.50-10.00) 10*3/uL RBC 2.89 L (4.10-5.20) 10*6/uL Hgb 7.2 L (12.0-15.0) g/dL Hct 24.1 L (37.2-46.3) % MCH 24.9 L (27.0-32.0) pg MCHC 29.9 L (32.0-37.0) g/dL Immature Gran # 0.06 H (0.00-0.04) 10*3/uL Eosinophils # 0.55 H (0.04-0.35) 10*3/uL ESR (0-30) mm/Hr Sodium (137-145) mmol/L Calcium (8.4-10.2) mg/dL C-Reactive Protein 8.5 H (<1.0) mg/dL Total Protein (6.3-8.2) g/dL Albumin (3.5-5.0) g/dL Urine Protein Trace H (Negative) 01/04/25 Range/Units 05:46 WBC (4.50-10.00) 10*3/uL RBC (4.10-5.20) 10*6/uL Hgb (12.0-15.0) g/dL Hct (37.2-46.3) % MCH (27.0-32.0) pg MCHC (32.0-37.0) g/dL Immature Gran # (0.00-0.04) 10*3/uL Eosinophils # (0.04-0.35) 10*3/uL ESR (0-30) mm/Hr Sodium 134 L (137-145) mmol/L Calcium 7.9 L (8.4-10.2) mg/dL C-Reactive Protein (<1.0) mg/dL Total Protein (6.3-8.2) g/dL Albumin (3.5-5.0) g/dL Urine Protein (Negative) Assessment and Plan (1) Abscess Current Visit: Yes Status: Acute Code(s): L02.91 - CUTANEOUS ABSCESS, UNSPECIFIED SNOMED Code(s): 107790945 Plan: 1patient with multiple skin abscesses apparently started following the right upper back that has spontaneous rupture now with multiple small abscesses to the bilateral upper extremity and right thigh area highly clinically suspicious for Staphylococcus skin soft tissue infection 2-blood and local cultures-has been obtained which are currently pending 3-patient will be treated with vancomycin pharmacy to dose while waiting for the culture to finalize Daughter at the bedside multiple question concern answered At Dictation was produced using [employer] dictation software. please excuse any grammatical, word or spelling errors. Time with Patient: Less than 30
[2025-01-04] MEDS: PANTOPRAZOLE 40 MG TABLET PO SCH (13:06)
--- NOTE | 2025-01-04 20:36 | PN ---
PROGRESS NOTE DATE OF SERVICE: 01/04/2025 SUBJECTIVE: This is a 74-year-old woman, who was admitted with rectal bleeding as well as multiple subcutaneous swellings, being evaluated for the possible colitis. The patient also had subcutaneous lesions, possibly pyoderma gangrenosum. Surgical evaluation has been sought. Cultures also have been sought, possible colonoscopy. No chest pain. No palpitation. PAST MEDICAL HISTORY: Reviewed. REVIEW OF SYSTEMS: 14-point review of systems is negative except as mentioned earlier. CURRENT MEDICATIONS: Reviewed. PHYSICAL EXAMINATION: VITAL SIGNS: Pulse is 79, blood pressure 113/58, respirations 16. HEENT: Conjunctivae normal. NECK: No jugular venous distention. CARDIOVASCULAR: S1, S2. RESPIRATIONS: Breath sounds diminished at the bases. Few scattered rhonchi. ABDOMEN: Soft. SKIN: Diffuse lesions present. LABORATORY DATA: Hemoglobin 7.2. ASSESSMENT: 1. Multiple subcutaneous lesions possibly methicillin-resistant Staphylococcus aureus with sepsis. 2. Possible pyoderma gangrenosum. 3. Possible Crohn disease versus ulcerative colitis. 4. Underlying Crohn disease with the gastrointestinal bleed possibly. 5. Elevated WBC. 6. Anemia. 7. History gastroesophageal reflux disease. 8. History of restless legs syndrome. RECOMMENDATIONS: Recommend to continue current medications, symptomatic treatment. Otherwise, possible skin biopsy, cultures, possible endoscopes, guarded prognosis, further recommendations to follow. MMODL / IJN: [id number] /
[2025-01-04] MEDS: LACTATED RINGERS 1,000 ML IV SCH (23:13)
--- NOTE | 2025-01-05 03:20 | P.CNPUL ---
History of Present Illness Consult date: 01/05/25 Requesting physician: Fred Macdonald Reason for consult: dyspnea Chief complaint: Cutaneous lesions History of present illness: Patient is a 74-year-old female present to the emergency department back on 01/03/2025. She was complaining of increased weakness and fatigue with exertional dyspnea. She did have some outpatient labs concerning for anemia. Endorses blood-tinged loose stools. Of note, patient has developed diffuse cutaneous papular nodular lesions involving her bilateral lower extremities, bilateral upper extremities, and back. Erythemic and painful, some have spontaneous erupted and have purulent drainage. Did have a isolated fever 102.1 F outside of the hospital. Possibly erythema nodosum. Denies history of autoimmune diseases. Does suffer from IBS and has been treated for colitis. She sees Dr. Tj Ladd. Dr. Vaca did biopsy a lesion on her back. She has been started on IV vancomycin. A pulmonary consultation was placed for exertional dyspnea. Patient currently being evaluated in the cardiac stepdown unit. She is resting comfortably on room air. Does endorse exertional dyspnea over the last 1 to 1-1/2 weeks. Denies URI-like symptoms. Denies cough. Denies chest pain. Denies heart palpitations, being lightheaded, or syncope. Denies any history COPD, asthma. Did have a chest x-ray which did not show any acute cardiopulmonary process. Patient is anemic with a hemoglobin as low as 7.2 g/dL. She has been having blood-tinged loose bowel movements. Denies any abdominal pain. Denies any nausea or vomiting. Reportedly scheduled for colonoscopy later today. CBC: WBC count 8.4, hemoglobin 7.2 g/dL, platelets 369. BMP is unremarkable, electrolytes WDL, creatinine 0.69, glucose 86. CRP 8.5. Rheumatoid factor less than 15. CRISTINE screen negative. current vital signs: Temperature 97.9 F, heart rate 75 bpm, blood pressure 127/78 mmHg, nontac hypneic, SpO2 was recorded at 98% on room air. Review of Systems REVIEW OF SYSTEMS: CONSTITUTIONAL: Denies any recent significant weight loss or weight gain. Does endorse prodrome symptoms including weakness, fatigue, fever. No arthralgias. EYES: Denies change in vision. EARS, NOSE, MOUTH, THROAT: Denies headaches, denies sore throat. CARDIOVASCULAR: Denies chest pain, palpitations or syncopal episodes. RESPIRATORY: Denies shortness of breath, cough, congestion or hemoptysis. GASTROINTESTINAL: Denies change in appetite, abdominal pain, nausea and vomiting. Does endorse loose stools that are occasionally blood-tinged. GENITOURINARY: Denies hematuria, denies infections. MUSKULOSKELETAL: Denies pain, denies swelling. INTEGUMENTARY: See HPI NEUROLOGICAL: Denies recent memory loss, no recent seizure activity. PSYCHIATRIC: Denies anxiety, denies depression. HEMATOLOGIC/LYMPHATIC: Denies anemia, denies enlarged lymph node Past Medical History Past Medical History: GERD/Reflux Additional Past Medical History / Comment(s): Restless legs, hx of polys and IBS, since September 2024: bloody BMs History of Any Multi-Drug Resistant Organisms: None Reported Past Surgical History: Back Surgery, Joint Replacement Additional Past Surgical History / Comment(s): TOTAL RIGHT HIP, KURT TOTAL KNEES, unspecified back sx Past Anesthesia/Blood Transfusion Reactions: No Reported Reaction Additional Past Anesthesia/Blood Transfusion Reaction / Comment(s): no blood transfusions Past Psychological History: No Psychological Hx Reported Smoking Status: Never smoker Past Alcohol Use History: None Reported, Occasional Past Drug Use History: None Reported - Past Family History Sister(s) Family Medical History: Cancer Additional Family Medical History / Comment(s): BREAST AND UTERINE CANCER Medications and Allergies Home Medications Medication Instructions Recorded Confirmed Type rOPINIRole HCL [Requip] 4 mg PO TID 01/03/25 01/03/25 History Allergies Allergy/AdvReac Type Severity Reaction Status Date / Time No Known Allergies Allergy Verified 01/03/25 14:38 Physical Exam Vitals: Vital Signs Temp Pulse Pulse Resp BP BP Pulse Ox 01/05/25 01:16 14 01/05/25 00:20 97.9 F 75 14 127/78 98 01/04/25 21:00 98.4 F 74 18 146/78 98 01/04/25 20:53 97.7 F 72 16 105/44 95 01/04/25 20:00 97.7 F 74 16 128/54 96 01/04/25 16:00 76 18 115/50 100 01/04/25 14:07 76 18 121/53 96 01/04/25 13:08 69 16 121/53 98 01/04/25 10:47 67 16 102/46 99 01/04/25 09:37 79 16 113/58 99 01/04/25 07:39 97.9 F 76 19 113/63 96 01/04/25 06:41 80 17 119/57 Intake and Output 01/04/25 01/04/25 01/05/25 14:59 22:59 06:59 Other: Voiding Method Toilet # Voids 1 Weight 78.925 kg GENERAL EXAM: Alert, 74-year-old female, comfortable in no apparent distress. HEAD: Normocephalic and atraumatic EYES: Normal reaction of pupils, equal size. NOSE: Clear with pink turbinates. THROAT: No erythema or exudates. NECK: No masses, no JVD. CHEST: No chest wall deformity. LUNGS: Equal air entry with no crackles, wheeze, rhonchi or dullness. On room air. No conversational dyspnea or accessory muscle use.. CVS: S1 and S2 normal with no audible murmur, regular rhythm. No extra heart sounds ABDOMEN: No hepatosplenomegaly, active bowel sounds, no guarding or rigidity. SPINE: No scoliosis or deformity SKIN: Erythemic, painful, papular nodular lesions involving the lower extremities, upper extremities, and back. Few lesions with purulent drainage. CENTRAL NERVOUS SYSTEM: No focal deficits, tone is normal in all 4 extremities. EXTREMITIES: There is no peripheral edema, clubbing, or cyanosis. Peripheral pulses are intact. Results - Laboratory Findings CBC and BMP: 01/04/25 05:46 01/04/25 05:46 PT/INR, D-dimer PT 11.3 sec (10.0-12.5) 01/03/25 13:39 INR 1.0 (<1.2) 01/03/25 13:39 Abnormal lab findings: Abnormal Labs 01/03/25 01/03/25 01/03/25 13:33 13:33 13:33 WBC 10.14 H RBC 3.13 L Hgb 7.8 L Hct 25.6 L MCH 24.9 L MCHC 30.5 L Immature Gran # 0.09 H Eosinophils # 0.40 H ESR 64 H Sodium 135 L Calcium 8.2 L Iron TIBC % Saturation Transferrin C-Reactive Protein Total Protein 5.5 L Albumin 2.8 L Urine Protein 06/05/2001/03/25 01/04/25 13:39 14:49 05:46 WBC RBC 2.89 L Hgb 7.2 L Hct 24.1 L MCH 24.9 L MCHC 29.9 L Immature Gran # 0.06 H Eosinophils # 0.55 H ESR Sodium Calcium Iron TIBC % Saturation Transferrin C-Reactive Protein 8.5 H Total Protein Albumin Urine Protein Trace H 01/04/25 01/04/25 05:46 05:46 WBC RBC Hgb Hct MCH MCHC Immature Gran # Eosinophils # ESR Sodium 134 L Calcium 7.9 L Iron 11 L TIBC 193 L % Saturation 5.70 L Transferrin 138.0 L C-Reactive Protein Total Protein Albumin Urine Protein - Diagnostic Findings Chest x-ray: image reviewed Assessment and Plan Assessment: Suspect panniculitis with bilateral erythemic, tender, subcutaneous nodules, distribution involving the bilateral lower extremities, upper extremities, and back. One of the lesions was biopsied and microbiology is pending. Patient was placed on IV vancomycin. History of IBS Anemia, hemoglobin 7.2 g/dL Exertional dyspnea, likely secondary to above Plan: Patient's pulmonary status is stable On room air Chest x-ray reviewed no acute cardiopulmonary process noted. Monitor for acute blood loss, transfuse for hemoglobin less than 7 g/dL GI is following. Tentative plan for colonoscopy later today. Skin/wound biopsy pending On IV vancomycin. Infectious diseases consulted. Case to be reviewed with Dr. Kirk, further recommendations to follow. I have personally seen and examined the patient, performed the documentation and the assessment and plan as written. Number of minutes spent on the visit:20 Time with Patient: Greater than 30
[2025-01-05] MEDS: PEG 3350 (236 GM/BTL) + LYTES 4,000 ML BOTTLE PO ONE (06:59)
[2025-01-05] MEDS: ONDANSETRON 4 MG/2 ML VIAL IVP PRN (07:00)
[2025-01-05 07:58] LABS: Basophils # (A) 0.04 10*3/uL (0.00-0.10); Basophils % (A) 0.4 %; Eosinophils # (A) 0.54 10*3/uL (0.04-0.35); HCT 24.2 % (37.2-46.3); HGB 7.3 g/dL (12.0-15.0); Lymphocytes # (A) 1.18 10*3/uL (0.90-5.00); Lymphocytes % (A) 13.2 %; MCHC 30.2 g/dL (32.0-37.0); MCV 82.9 fL (80.0-97.0); Mean Platelet Volume 8.2 fL (9.5-12.2); Monocytes # (A) 0.59 10*3/uL (0.20-1.00); Monocytes % (A) 6.6 %; Neutrophils # (A) 6.52 10*3/uL (1.80-7.70); Platelet Count 406 10*3/uL (140-440); RBC 2.92 10*6/uL (4.10-5.20); RDW 15.3 % (11.5-14.5); WBC 8.94 10*3/uL (4.50-10.00)
[2025-01-05 08:27] LABS: ALT 6 U/L (4-34); AST 13 U/L (14-36); African American GFR (CKD) >90 (>60 ml/min/1.73 sqM); Albumin 2.4 g/dL (3.5-5.0); Alkaline Phosphatase 120 U/L (38-126); Anion Gap 8 mmol/L; Blood Urea Nitrogen 7 mg/dL (7-17); Calcium 8.1 mg/dL (8.4-10.2); Carbon Dioxide 23 mmol/L (22-30); Chloride 106 mmol/L (98-107); Glucose 94 mg/dL (74-99); Non-African American GFR(CKD) 84 (>60 ml/min/1.73 sqM); Potassium 3.9 mmol/L (3.5-5.1); Sodium 137 mmol/L (137-145); Total Bilirubin 0.3 mg/dL (0.2-1.3); Total Protein 5.1 g/dL (6.3-8.2)
--- NOTE | 2025-01-05 11:21 | P.PN ---
Subjective Progress Note Date: 01/05/25 SURGICAL PROGRESS NOTE CHIEF COMPLAINT: Anemia HISTORY OF PRESENT ILLNESS: Surgical service following in regards to multiple skin lesions. Patient remains on antibiotics. She does have 2 new ones develo ping on the right leg. She is completing the bowel prep today with plans of colonoscopy this afternoon with GI service. PHYSICAL EXAM: VITAL SIGNS: Reviewed. GENERAL: Well-developed in no acute distress. ABDOMEN: Soft. Nondistended. Nontender. NEUROLOGIC: Alert and oriented. Cranial nerves II through XII grossly intact. Skin: Multiple skin lesions with 2 new lesions developing on the right leg. 1 near the right knee. ASSESSMENT: 1. Multiple skin lesions noted on the back arms and upper legs PLAN: - Dr. Vaca will do a bedside of the skin lesion today - Antibiotics per ID service - GI service planning colonoscopy today for GI bleed and anemia Physician Lpn note has been reviewed by physician. Signing provider agrees with the documented findings, assessment, and plan of care. Objective - Vital Signs Vital signs: Vital Signs Temp 97.9 F 01/05/25 08:00 Pulse 79 01/05/25 08:00 Resp 20 01/05/25 08:00 BP 135/65 01/05/25 08:00 Pulse Ox 94 L 01/05/25 08:00 FiO2 Intake & Output 01/04/25 01/05/25 01/05/25 18:59 06:59 18:59 Intake Total 20 Balance 20 Weight 78.6 kg Intake: IV 20 Invasive Line 1 10 Invasive Line 2 10 Other: Voiding Method Toilet Toilet # Voids 1 1 # Bowel Movements 1 2 - Labs CBC & Chem 7: 01/05/25 07:24 01/05/25 07:24 Labs: Abnormal Lab Results - Last 24 Hours (Table) 01/05/25 01/05/25 Range/Units 07:24 07:24 RBC 2.92 L (4.10-5.20) 10*6/uL Hgb 7.3 L (12.0-15.0) g/dL Hct 24.2 L (37.2-46.3) % MCH 25.0 L (27.0-32.0) pg MCHC 30.2 L (32.0-37.0) g/dL MPV 8.2 L (9.5-12.2) fL Immature Gran # 0.07 H (0.00-0.04) 10*3/uL Eosinophils # 0.54 H (0.04-0.35) 10*3/uL Calcium 8.1 L (8.4-10.2) mg/dL AST 13 L (14-36) U/L Total Protein 5.1 L (6.3-8.2) g/dL Albumin 2.4 L (3.5-5.0) g/dL Microbiology - Last 24 Hours (Table) 01/03/25 13:40 Blood Culture - Preliminary Blood 01/03/25 14:49 Gram Stain - Preliminary Back Wound Culture - Preliminary
--- NOTE | 2025-01-05 15:35 | P.OP ---
Date of Procedure: 01/05/25 Preoperative Diagnosis: Skin lesion left arm Postoperative Diagnosis: defer to pathology Procedure(s) Performed: punch biopsy of skin lesion Anesthesia: local Surgeon: Dariel Vaca Pathology: other (skin lesion) Condition: stable Disposition: PACU Description of Procedure: the patient was placed on the bed in supine position. Her left arm was prepped and draped in a sterile fashion. The skin was anesthetized 1% local Xylocaine. Using a 4 mm punch biopsy a punch biopsy of the left arm skin lesion was performed. Sterile dressing applied. Patient tolerated the procedure well.
--- NOTE | 2025-01-05 16:37 | P.PN ---
Subjective Progress Note Date: 01/05/25 Principal diagnosis: Reason for follow-up is multiple skin abscesses Patient is a 74-year-old female with a past medical history significant for reflux osteoarthritis in this patient who did have right hip and bilateral knee replacement presenting to the hospital for evaluation of weakness and fatigue, patient did have multiple skin abscesses prompting this consultat ion. On today's evaluation that is 01/05/2025,the patient remains to be afebrile, patient is on room air not requiring supplemental oxygen and denies any shortness of breath no chest pain or cough.Patient denies having any nausea or vomiting, no abdominal pain and no diarrhea circumventing of pain mostly to the nodules on the right lateral thigh area. Patient white count is 8.94, creatinine 0.7 Cultures so far pending Objective - Vital Signs Vital signs: Vital Signs Temp 97.9 F 01/05/25 08:00 Pulse 79 01/05/25 08:00 Resp 20 01/05/25 08:00 BP 135/65 01/05/25 08:00 Pulse Ox 94 L 01/05/25 08:00 FiO2 Intake & Output 01/04/25 01/05/25 01/05/25 18:59 06:59 18:59 Intake Total 10 Balance 10 Weight 78.6 kg Intake: IV 10 Invasive Line 1 10 Other: Voiding Method Toilet Toilet # Voids 1 1 # Bowel Movements 1 1 - Exam GENERAL DESCRIPTION: An elderly female lying in bed in no distress RESPIRATORY SYSTEM: Unlabored breathing , decreased breath sounds at bases HEART: S1 S2 regular rate and rhythm , ABDOMEN: Soft , no tenderness EXTREMITIES: Small abscesses on the bilateral forearm drying out - Labs CBC & Chem 7: 01/05/25 07:24 01/05/25 07:24 Labs: Abnormal Lab Results - Last 24 Hours (Table) 01/04/25 01/05/25 01/05/25 Range/Units 05:46 07:24 07:24 RBC 2.92 L (4.10-5.20) 10*6/uL Hgb 7.3 L (12.0-15.0) g/dL Hct 24.2 L (37.2-46.3) % MCH 25.0 L (27.0-32.0) pg MCHC 30.2 L (32.0-37.0) g/dL MPV 8.2 L (9.5-12.2) fL Immature Gran # 0.07 H (0.00-0.04) 10*3/uL Eosinophils # 0.54 H (0.04-0.35) 10*3/uL Calcium 8.1 L (8.4-10.2) mg/dL Iron 11 L (50-170) UG/DL TIBC 193 L (228-460) UG/DL % Saturation 5.70 L (12.00-45.00) Transferrin 138.0 L (204.0-354.0) mg/dL AST 13 L (14-36) U/L Total Protein 5.1 L (6.3-8.2) g/dL Albumin 2.4 L (3.5-5.0) g/dL Microbiology - Last 24 Hours (Table) 01/03/25 13:40 Blood Culture - Preliminary Blood 01/03/25 14:49 Gram Stain - Preliminary Back Wound Culture - Preliminary Assessment and Plan (1) Abscess Current Visit: Yes Status: Acute Code(s): L02.91 - CUTANEOUS ABSCESS, UNSPECIFIED SNOMED Code(s): 109175140 Plan: 1patient with multiple skin abscesses apparently started following the right upper back that has spontaneous rupture now with multiple small abscesses to the bilateral upper extremity and right thigh area highly clinically suspicious for Staphylococcus skin soft tissue infection 2-blood and local cultures-has been obtained which are currently pending as of 01/05/2025 3-patient is afebrile white count has normalized, will be treated with vancomycin pharmacy to dose while waiting for the culture to finalize Daughter at the bedside multiple question concern answered Dictation was produced using [employer] dictation software. please excuse any grammatical, word or spelling errors. Time with Patient: Less than 30
[2025-01-05] MEDS ORDERED: PROPOFOL 10 MG/ML 20 ML VIAL IV ONE (16:54)
[2025-01-05] MEDS: IV FLUID CONTINUATION 1,000 ML IV ONE (16:54)
[2025-01-05] MEDS ORDERED: PHENYLEPHRINE 10 MG/ML VIAL ONE (16:54)
--- NOTE | 2025-01-05 17:18 | P.PCN ---
Date of Procedure: 01/05/25 Procedure(s) Performed: BRIEF HISTORY: Patient is a 74-year-old pleasant white female scheduled for an elective colonoscopy as a part of evaluation of rectal bleeding and diarrhea for the last 1 month duration. She was diagnosed with chronic colitis involving the sigmoid colon possibly diverticular related colitis about 3 years ago and has been maintained on balsalazide 3 capsules 3 times daily since then has been doing well. However for the last 1 month has been having intermittent diarrhea with rectal bleeding with 5-6 bowel movements daily and small amount of blood and mucus in the stool. About a month ago she started developing multiple skin lesions suspicious for erythema nodosum and questionable pyoderma gangrenosum. She underwent a skin biopsy today. She is scheduled for a colonoscopy to evaluate for inflammatory bowel disease. PROCEDURE PERFORMED: Colonoscopy with biopsy. PREOPERATIVE DIAGNOSIS: Rectal bleeding and diarrhea of 1 month duration. IV sedation per Anesthesia. PROCEDURE: After informed consent was obtained, the patient, was brought into the endoscopy unit. IV sedation was administered by Anesthesia under continuous monitoring. Digital rectal examination was normal. Initially the Olympus CF-160 flexible video pediatric colonoscope was then inserted in the rectum, gradually advanced into the cecum without any difficulty. Careful examination was performed as the scope was gradually being withdrawn. Ileocecal valve and the appendiceal orifice were visualized and appeared normal. Prep was poor.. There was solid stool noted in the cecum, and ascending colon, but the visualized portions of the mucosa appeared normal. Mucosa of the transverse colon, descending colon appeared normal. There was severe segmental colitis involving the sigmoid colon extending from 20 to 35 cm from the anal verge with severe cobblestoning of the mucosa, friability erythema spontaneous oozing consistent with inflammatory bowel disease and multiple biopsies were done from this area. There was patchy erythema noted in the distal rectum that was biopsied.. Retroflexion was performed in the rectum and no lesions were seen. The patient tolerated the procedure well. IMPRESSION: Severe colitis involving the sigmoid colon extending from 20 to 35 cm from the anal verge with cobblestoning of the mucosa, friability spontaneous oozing and bleeding suspicious for inflammatory bowel disease Mild colitis involving the rectum Rest of the colon including cecum ascending colon transverse colon and descending colon appeared normal RECOMMENDATIONS: Findings of this examination were discussed with the patient as well as her family. At this time we will await biopsy results. Started on IV steroids with Solu-Medrol 20 mg every 8 hours. Advance to full liquid diet..
[2025-01-05] MEDS: methylPREDNISolone SOD SUCCI 40 MG/ML 1 ML VIAL IV SCH (17:44)
--- NOTE | 2025-01-05 20:59 | PN ---
PROGRESS NOTE DATE OF SERVICE: 01/05/2025 SUBJECTIVE: This is a 74-year-old woman, who was admitted with multiple subcutaneous lesions and rectal bleeding, slated to have endoscopy today. The patient is being closely monitored. No chest pain. No palpitation. The cultures are negative so far. PHYSICAL EXAMINATION: VITAL SIGNS: Pulse 83, blood pressure 130/64, and respirations 18. HEENT: Conjunctivae normal. NECK: No jugular venous distention. CARDIOVASCULAR: S1, S2. ABDOMEN: Soft, nontender. NEVOUS SYSTEM: Nonfocal. LABORATORY DATA: Hemoglobin 7.3. ASSESSMENT: 1. Multiple subcutaneous lesions, possibly MRSA with sepsis. 2. Possible pyoderma gangrenosum. 3. Possible Crohn disease versus ulcerative colitis. 4. Underlying Crohn disease with GI bleed, possibly. 5. Elevated WBC. 6. Anemia. 7. History of gastroesophageal reflux disease. 8. History of restless legs syndrome. RECOMMENDATIONS: Recommend to continue current medications, symptomatic treatment. Otherwise, skin biopsy done by Surgery, Dr. Vaca. I await skin biopsy report and colonoscopy report. Empiric antibiotics. We will await the culture report. Prognosis guarded. Further recommendations to follow. MMODL / IJN: [id number] /
--- NOTE | 2025-01-06 07:15 | P.PN ---
Subjective This is a pleasant 74 years old female who was sent by her PCP for low hemoglobin related to rectal bleeding and bleeding from multiple skin blisters that started about 2 to 3 weeks ago. She has multiple blisters about 13 of them, they are large about 1 to 2 inches in diameter 1 in the left arm forearm which is biopsy, 1 in the right knee which has not popped yet, 1 in the right arm, 2 on the back and 1 on the lateral thigh. They are painful but when they pop up they become painless. She has been evaluated by GI team she underwent colonoscopy on 12/05 yesterday showing severe colitis in the sigmoid colon with cobblestone appearance suspicio us for inflammatory bowel disease and patient was started on IV Solu-Medrol. While the skin lesions are suspicious for the pyoderma gangrenosum. She is covered with IV vancomycin, ID team following. General surgery also following status post left skin biopsy which is pending Patient denies any GI symptoms like abdominal pain or vomiting. She tolerates little liquid diet and she is going to be advanced to solid. She has loose 2-3 bowel movement yesterday. Objective - Vital Signs Vital signs: Vital Signs Temp 97.6 F 01/05/25 23:35 Pulse 94 01/06/25 04:30 Resp 16 01/06/25 04:30 BP 108/67 01/06/25 04:30 Pulse Ox 99 01/06/25 04:30 FiO2 Intake & Output 01/05/25 01/06/25 01/06/25 18:59 06:59 18:59 Intake Total 220 Output Total 400 Balance 220 -400 Weight 78.7 kg Intake: IV 220 Invasive Line 1 10 Invasive Line 2 10 Output: Urine 400 Other: Voiding Method Toilet Toilet # Voids 1 2 # Bowel Movements 2 2 - Exam GENERAL: The patient is alert and oriented x3, not in any acute distress. Well developed, well nourished. HEENT: Pupils are round and equally reacting to light. EOMI. No scleral icterus. No conjunctival pallor. Normocephalic, atraumatic. No pharyngeal erythema. No thyromegaly. CARDIOVASCULAR: S1 and S2 present. No murmurs, rubs, or gallops. PULMONARY: Chest is clear to auscultation, no wheezing , no crackles. ABDOMEN: Soft, nontender, nondistended, normoactive bowel sounds. No palpable organomegaly. MUSCULOSKELETAL: No joint swelling or deformity. EXTREMITIES: No cyanosis, clubbing, or pedal edema. NEUROLOGICAL: Gross neurological examination did not reveal any focal deficits. -SKIN: No rashes. no petechiae. Multiple skin lesions and nodules including the extremities, back, most of them are popped up with little oozing of blood. - Labs CBC & Chem 7: 01/05/25 07:24 01/05/25 07:24 Labs: Abnormal Lab Results - Last 24 Hours (Table) 01/05/25 01/05/25 Range/Units 07:24 07:24 RBC 2.92 L (4.10-5.20) 10*6/uL Hgb 7.3 L (12.0-15.0) g/dL Hct 24.2 L (37.2-46.3) % MCH 25.0 L (27.0-32.0) pg MCHC 30.2 L (32.0-37.0) g/dL MPV 8.2 L (9.5-12.2) fL Immature Gran # 0.07 H (0.00-0.04) 10*3/uL Eosinophils # 0.54 H (0.04-0.35) 10*3/uL Calcium 8.1 L (8.4-10.2) mg/dL AST 13 L (14-36) U/L Total Protein 5.1 L (6.3-8.2) g/dL Albumin 2.4 L (3.5-5.0) g/dL Microbiology - Last 24 Hours (Table) 01/03/25 13:40 Blood Culture - Preliminary Blood 01/03/25 14:49 Gram Stain - Final Back Wound Culture - Final Assessment and Plan Assessment: Inflammatory bowel disease with severe colitis involving the sigmoid colon suspicious for Crohn disease versus ulcerative colitis Pyoderma gangrenosum Staphylococcal skin infection is also suspected Acute on chronic anemia Plan: Continue with IV Solu-Medrol Continue IV vancomycin Continue with IV hydration GI team consult Infectious disease team consult General Surgery team consult ordered skin biopsy, left arm lesion skin biopsy: Pending GI prophylaxis: Protonix Resume rest of medication DVT prophylaxis: Subcutaneous heparin Recommended physical therapy Prognosis guarded
[2025-01-06 07:53] LABS: Basophils # (A) 0.02 10*3/uL (0.00-0.10); Basophils % (A) 0.2 %; HGB 7.5 g/dL (12.0-15.0); Lymphocytes # (A) 0.67 10*3/uL (0.90-5.00); Lymphocytes % (A) 7.6 %; MCH 24.7 pg (27.0-32.0); MCV 82.2 fL (80.0-97.0); Mean Platelet Volume 8.7 fL (9.5-12.2); Monocytes # (A) 0.09 10*3/uL (0.20-1.00); Neutrophils % (A) 90.6 %; Platelet Count 453 10*3/uL (140-440); RBC 3.04 10*6/uL (4.10-5.20); RDW 15.2 % (11.5-14.5); WBC 8.83 10*3/uL (4.50-10.00)
[2025-01-06 08:04] LABS: African American GFR (CKD) >90 (>60 ml/min/1.73 sqM); Anion Gap 7 mmol/L; Blood Urea Nitrogen 8 mg/dL (7-17); Calcium 8.2 mg/dL (8.4-10.2); Carbon Dioxide 25 mmol/L (22-30); Chloride 103 mmol/L (98-107); Glucose 141 mg/dL (74-99); Non-African American GFR(CKD) 80 (>60 ml/min/1.73 sqM); Potassium 4.2 mmol/L (3.5-5.1); Sodium 135 mmol/L (137-145)
[2025-01-06] MEDS: VANCOMYCIN TROUGH DUE 1 EACH MISC MISCELLANE ONE (09:16)
--- NOTE | 2025-01-06 11:07 | P.PN ---
Subjective Progress Note Date: 01/06/25 SURGICAL PROGRESS NOTE CHIEF COMPLAINT: Anemia HISTORY OF PRESENT ILLNESS: Surgical service following in regards to multiple skin lesions. She is status post left forearm skin biopsy at bedside with Dr. Vaca yesterday. Pathology results are pending. Patient status post colonoscopy with GI team that reported severe colitis including sigmoid colon with cobblestoning of the mucosa, friability spontaneous oozing and bleeding suspicious for inflammatory bowel disease. Mild colitis involving the rectum. GI service did start the patient on IV steroids. PHYSICAL EXAM: VITAL SIGNS: Reviewed. GENERAL: Well-developed in no acute distress. ABDOMEN: Soft. Nondistended. Nontender. NEUROLOGIC: Alert and oriented. Cranial nerves II through XII grossly intact. Skin: Multiple skin lesions. Left arm skin lesion and biopsy site clean and intact. Minimal serosanguineous drainage noted on bandage. ASSESSMENT: 1. Multiple skin lesions noted on the back arms and upper legs PLAN: -Follow-up on pathology results from skin biopsy -Steroids per GI service -Antibiotics per ID service Physician Program Director [employer] note has been reviewed by physician. Signing provider agrees with the documented findings, assessment, and plan of care. Objective - Vital Signs Vital signs: Vital Signs Temp 97.6 F 01/05/25 23:35 Pulse 94 01/06/25 04:30 Resp 16 01/06/25 04:30 BP 108/67 01/06/25 04:30 Pulse Ox 99 01/06/25 04:30 FiO2 Intake & Output 01/05/25 01/06/25 01/06/25 18:59 06:59 18:59 Intake Total 220 118 Output Total 400 Balance 220 -400 118 Weight 78.7 kg Intake: IV 220 Invasive Line 1 10 Invasive Line 2 10 Oral 118 Output: Urine 400 Other: Voiding Method Toilet Toilet # Voids 1 2 # Bowel Movements 2 2 - Labs CBC & Chem 7: 01/06/25 06:51 01/06/25 07:07 Labs: Abnormal Lab Results - Last 24 Hours (Table) 01/06/25 01/06/25 Range/Units 06:51 07:07 RBC 3.04 L (4.10-5.20) 10*6/uL Hgb 7.5 L (12.0-15.0) g/dL Hct 25.0 L (37.2-46.3) % MCH 24.7 L (27.0-32.0) pg MCHC 30.0 L (32.0-37.0) g/dL Plt Count 453 H (140-440) 10*3/uL MPV 8.7 L (9.5-12.2) fL Immature Gran # 0.05 H (0.00-0.04) 10*3/uL Neutrophils # 8.00 H (1.80-7.70) 10*3/uL Lymphocytes # 0.67 L (0.90-5.00) 10*3/uL Monocytes # 0.09 L (0.20-1.00) 10*3/uL Eosinophils # 0.00 L (0.04-0.35) 10*3/uL Sodium 135 L (137-145) mmol/L Glucose 141 H (74-99) mg/dL Calcium 8.2 L (8.4-10.2) mg/dL Microbiology - Last 24 Hours (Table) 01/03/25 13:40 Blood Culture - Preliminary Blood 01/03/25 14:49 Gram Stain - Final Back Wound Culture - Final
--- NOTE | 2025-01-06 11:25 | P.PN ---
Subjective Progress Note Date: 01/06/25 Principal diagnosis: Rectal bleeding, skin lesions This a pleasant 74-year-old female who has followed with Dr. Ladd the past for IBS, who had presented to the emergency department directed by her physician secondary to outpatient blood work and was told that she was anemic. Patient states that she has been having teeny pinkish tinge loose stool, mucus. This has been ongoing since September. Patient also is presenting with multiple abscesses on her body which she is unsure what it is because from. Infectious diseases following. She states that she does have a decreased appetite, some nausea and occasional vomiting. States she is having about 4-5 loose bowel movements daily. Last colonoscopy was in August [address] Ladd with findings of mild patchy areas of erythema in the sigmoid colon extending from the anal verge in the vicinity diverticulosis suspicious of diverticular related sigmoid colon colitis. Scattered sigmoid diverticulosis. No evidence of c olorectal neoplasia. Biopsies had shown mild active colitis with features of chronicity. Patient denies any significant abdominal pain. She recently started her mesalamine suppositories about a week ago last 1 on Thursday secondary to her symptoms. She was scheduled to see Willow Zheng [employer]EF[employer] CONSULTING ANALYST with gastroenterology today. Admitting labs WBC 8.3 hemoglobin 7.2 hematocrit 24 platelet count 369,000 sed rate was 64 INR 1.0 sodium 134 potassium 3.7 BUN 11 total bilirubin 0.4 AST 15 ALT 7 alkaline phosphatase 116 creatinine 0.6 CRP 8.5 01/06/2025 Patient seen and examined today as a follow-up. She is sitting up in the bedside chair. She states she is feeling well today Yesterday she underwent skin biopsy which is currently pending. She also underwent colonoscopy with findings of severe colitis involving the sigmoid colon extending from 20 to 35 cm from anal verge with cobblestoning of the mucosa friability with spontaneous oozing and bleeding suspicious for inflammatory bowel disease. Mild colitis involving the rectum. Rest of the colon including cecum ascending colon transverse colon descending colon appeared normal. Patient started on IV steroids with Solu-Medrol 20 mg every 8 hours. She was tolerating full liquid diet and would like to advance her diet. Patient's been afebrile. Hemoglobin 7.5 Objective - Vital Signs Vital signs: Vital Signs Temp 97.6 F 01/05/25 23:35 Pulse 94 01/06/25 04:30 Resp 16 01/06/25 04:30 BP 108/67 01/06/25 04:30 Pulse Ox 99 01/06/25 04:30 FiO2 Intake & Output 01/05/25 01/06/25 01/06/25 18:59 06:59 18:59 Intake Total 220 Output Total 400 Balance 220 -400 Weight 78.7 kg Intake: IV 220 Invasive Line 1 10 Invasive Line 2 10 Output: Urine 400 Other: Voiding Method Toilet Toilet # Voids 1 2 # Bowel Movements 2 2 - Exam General appearance: The patient is alert, oriented, appears in no acute distress. HET: Head is normocephalic and atraumatic. Conjunctiva pink. Sclera anicteric. Neck: Supple without lymphadenopathy. Abdomen: Soft, nontender, nondistended. Extremities: Normal skin color and turgor. No pedal edema Skin: No jaundice. Pustule/lesions on upper extremities and lower extremities all the way up around the inner thigh and outer thighs. Neurological: No focal deficits. Alert and oriented. - Labs CBC & Chem 7: 01/06/25 06:51 01/06/25 07:07 Labs: Abnormal Lab Results - Last 24 Hours (Table) 01/05/25 01/05/25 Range/Units 07:24 07:24 RBC 2.92 L (4.10-5.20) 10*6/uL Hgb 7.3 L (12.0-15.0) g/dL Hct 24.2 L (37.2-46.3) % MCH 25.0 L (27.0-32.0) pg MCHC 30.2 L (32.0-37.0) g/dL MPV 8.2 L (9.5-12.2) fL Immature Gran # 0.07 H (0.00-0.04) 10*3/uL Eosinophils # 0.54 H (0.04-0.35) 10*3/uL Calcium 8.1 L (8.4-10.2) mg/dL AST 13 L (14-36) U/L Total Protein 5.1 L (6.3-8.2) g/dL Albumin 2.4 L (3.5-5.0) g/dL Microbiology - Last 24 Hours (Table) 01/03/25 13:40 Blood Culture - Preliminary Blood 01/03/25 14:49 Gram Stain - Final Back Wound Culture - Final Assessment and Plan (1) Rectal bleeding Narrative/Plan: 74-year-old female presenting with anemia and pink-tinged mucus and loose stools for the last 3 months with up to 4-5 loose bowel movements daily. Last colonoscopy 2 years ago showing mild colitis thought to be secondary to diverticulosis however pathology did come back with some chronicity. Patient is status post colonoscopy with findings consistent with irritable bowel disease, likely dealing with Crohn's. Biopsies are pending. Patient started on IV Solu-Medrol and will be discharged on a tapered dose of prednisone 40 mg daily taper by 5 mg weekly. Recommend hospitalization for IV steroids overnight with anticipated discharge tomorrow. Outpatient follow-up with gastroenterology for biopsy results and patient will likely require Biologics. Lab work will be completed in order to start Biologics Current Visit: Yes Status: Acute Code(s): K62.5 - HEMORRHAGE OF ANUS AND RECTUM SNOMED Code(s): 89097154 (2) Diarrhea Current Visit: Yes Status: Acute Code(s): R19.7 - DIARRHEA, UNSPECIFIED SNOMED Code(s): 71642643 (3) Anemia Current Visit: Yes Status: Acute Code(s): D64.9 - ANEMIA, UNSPECIFIED SNOMED Code(s): 198458697 (4) GERD (gastroesophageal reflux disease) Current Visit: Yes Status: Acute Code(s): K21.9 - GASTRO-ESOPHAGEAL REFLUX DISEASE WITHOUT ESOPHAGITIS SNOMED Code(s): 406545582 (5) Skin pustule Narrative/Plan: Multiple skin pustules located on arms legs and upper thighs. Unclear etiology however there is lesion on lower extremity that appears to be possible erythema nodosum. Patient is status post skin biopsy, results currently pending. Current Visit: Yes Status: Acute Code(s): L08.9 - LOCAL INFECTION OF THE SKIN AND SUBCUTANEOUS TISSUE, UNSP SNOMED Code(s): 277493268 Plan: 1. Continue symptomatic and supportive care 2. Daily CBC transfuse for hemoglobin less than 7. Iron studies ordered 3. Protonix 40 mg daily for GI prophylaxis 4. Patient is post colonoscopy 5. Advance to regular diet 6. Continue with IV Solu-Medrol 20 mg every 8 hours for another 24 hours, then may discharge if patient stable on prednisone 40 mg daily taper by 5 mg weekly. Prednisone prescription sent to pharmacy. 7. Outpatient follow-up with gastroenterology in 1 week 8. Labs ordered for treatment with possible Biologics Thank you for allowing us to participate in the care of the patient, the GI service will sign off, gastroenterology will not be available at the hospital this weekend and through next week. If further evaluation by gastroenterology is required the patient will need transfer as per the primary team's discretion. Dr. Zena Ladd I agree with the dictator's note, documented as a scribe by Jimena Leach.
--- NOTE | 2025-01-06 13:05 | P.PN ---
Subjective Progress Note Date: 01/06/25 Patient is a 74-year-old female present to the emergency department back on 01/03/2025. She was complaining of increased weakness and fatigue with exertional dyspnea. She did have some outpatient labs concerning for anemia. Endorses blood-tinged loose stools. Of note, patient has developed diffuse cuta neous papular nodular lesions involving her bilateral lower extremities, bilateral upper extremities, and back. Erythemic and painful, some have spontaneous erupted and have purulent drainage. Did have a isolated fever 102.1 F outside of the hospital. Possibly erythema nodosum. Denies history of autoimmune diseases. Does suffer from IBS and has been treated for colitis. She sees Dr. Tj Ladd. Dr. Vaca did biopsy a lesion on her back. She has been started on IV vancomycin. A pulmonary consultation was placed for exertional dyspnea. Patient currently being evaluated in the cardiac stepdown unit. She is resting comfortably on room air. Does endorse exertional dyspnea over the last 1 to 1-1/2 weeks. Denies URI-like symptoms. Denies cough. Denies chest pain. Denies heart palpitations, being lightheaded, or syncope. Denies any history COPD, asthma. Did have a chest x-ray which did not show any acute cardiopulmonary process. Patient is anemic with a hemoglobin as low as 7.2 g/dL. She has been having blood-tinged loose bowel movements. Denies any abdominal pain. Denies any nausea or vomiting. Reportedly scheduled for colonoscopy later today. CBC: WBC count 8.4, hemoglobin 7.2 g/dL, platelets 369. BMP is unremarkable, electrolytes WDL, creatinine 0.69, glucose 86. CRP 8.5. Rheumatoid factor less than 15. CRISTINE screen negative. current vital signs: Temperature 97.9 F, heart rate 75 bpm, blood pressure 127/78 mmHg, nontachypneic, SpO2 was recorded at 98% on room air. The patient is seen today January 06, 2025 in follow-up on the selective care unit. She is currently sitting up in chair at the bedside. Awake and alert in no acute distress. Maintaining good O2 saturations in the 90s on room air oxygen. She has been afebrile. Hemodynamically stable. She did undergo colonoscopy yesterday that revealed severe colitis involving the sigmoid colon extending from 20 to 35 cm with cobblestoning of the mucosa, friability with spontaneous oozing and bleeding suspicious for inflammatory bowel disease. Many biopsies were taken. Her diet was advanced to full liquids. She had also undergone a skin biopsy of the suspected pyoderma gangrenosum and erythema nodosum. She has been initiated on Solu-Medrol 20 mg every 8 hours. Blood cultures revealing no growth. Wound culture revealed no growth. White count 8.8. Hemoglobin 7.5. Platelets 453. Sodium 135. Potassium 4.2. Bicarb 25. BUN 8. Creatinine 0.74. Glucose 141. She remains on heparin for DVT prophylaxis. Continued on Protonix. Remains on vancomycin per ID service. Vancomycin trough 13.5. C. difficile screen was negative. Hepatitis screen was negative. Objective - Vital Signs Vital signs: Vital Signs Temp 97.6 F 01/05/25 23:35 Pulse 94 01/06/25 04:30 Resp 16 01/06/25 04:30 BP 108/67 01/06/25 04:30 Pulse Ox 99 01/06/25 04:30 FiO2 Intake & Output 01/05/25 01/06/25 01/06/25 18:59 06:59 18:59 Intake Total 220 118 Output Total 400 Balance 220 -400 118 Weight 78.7 kg Intake: IV 220 Invasive Line 1 10 Invasive Line 2 10 Oral 118 Output: Urine 400 Other: Voiding Method Toilet Toilet # Voids 1 2 # Bowel Movements 2 2 - Exam GENERAL EXAM: Alert, very pleasant 74-year-old female, sitting up in a chair, on room air oxygen, comfortable in no apparent distress. HEAD: Normocephalic and atraumatic EYES: Normal reaction of pupils, equal size. NOSE: Clear with pink turbinates. THROAT: No erythema or exudates. NECK: No masses, no JVD. CHEST: No chest wall deformity. LUNGS: Equal air entry with no crackles, wheeze, rhonchi or dullness. No conversational dyspnea or accessory muscle use. CVS: S1 and S2 normal with no audible murmur, regular rhythm. No extra heart sounds ABDOMEN: No hepatosplenomegaly, active bowel sounds, no guarding or rigidity. SPINE: No scoliosis or deformity SKIN: Erythemic, painful, papular nodular lesions involving the lower extremit ies, upper extremities, and back. Few lesions with purulent drainage. CENTRAL NERVOUS SYSTEM: No focal deficits, tone is normal in all 4 extremities. EXTREMITIES: There is no peripheral edema, clubbing, or cyanosis. Peripheral pulses are intact. - Labs CBC & Chem 7: 01/06/25 06:51 01/06/25 07:07 Labs: Abnormal Lab Results - Last 24 Hours (Table) 01/06/25 01/06/25 Range/Units 06:51 07:07 RBC 3.04 L (4.10-5.20) 10*6/uL Hgb 7.5 L (12.0-15.0) g/dL Hct 25.0 L (37.2-46.3) % MCH 24.7 L (27.0-32.0) pg MCHC 30.0 L (32.0-37.0) g/dL Plt Count 453 H (140-440) 10*3/uL MPV 8.7 L (9.5-12.2) fL Immature Gran # 0.05 H (0.00-0.04) 10*3/uL Neutrophils # 8.00 H (1.80-7.70) 10*3/uL Lymphocytes # 0.67 L (0.90-5.00) 10*3/uL Monocytes # 0.09 L (0.20-1.00) 10*3/uL Eosinophils # 0.00 L (0.04-0.35) 10*3/uL Sodium 135 L (137-145) mmol/L Glucose 141 H (74-99) mg/dL Calcium 8.2 L (8.4-10.2) mg/dL Microbiology - Last 24 Hours (Table) 01/03/25 13:40 Blood Culture - Preliminary Blood 01/03/25 14:49 Gram Stain - Final Back Wound Culture - Final Assessment and Plan Assessment: Tender, subcutaneous nodules, distribution involving the bilateral lower extremities, upper extremities, and back. One of the lesions was biopsied 01/05/2025 and microbiology is pending. Patient was placed on IV vancomycin. Cultures revealed no growth. Suspect erythema nodosum and questionable pyoderma gangrenosum. Initiated on Solu-Medrol History of IBS, status post colonoscopy 01/05/2025 and was found to have severe colitis involving the sigmoid colon extending from 20 to 35 cm with cobblestoning of the mucosa, friability spontaneous oozing and bleeding suspicious for inflammatory bowel disease Anemia, hemoglobin 7.5 g/dL Exertional dyspnea, likely secondary to above Plan: The patient was seen and evaluated Labs and medications reviewed Colonoscopy results reviewed Biopsies results are pending Skin wound biopsy pending Wound culture revealed no growth Currently on vancomycin per ID service Plan is to start Biologics in the outpatient setting Probable discharge in the a.m. Remains stable and on room air oxygen Increase activity as tolerated This patient was seen independently by the pulmonary nurse practitioner addressing pulmonary issues I have personally seen and examined the patient, performed the documentation and the assessment and plan as written. Number of minutes spent on the visit: 25 Dictation was produced using Robert Applebaum MD dictation software. Please excuse any grammatical, word or spelling errors.
--- NOTE | 2025-01-06 19:31 | P.PN ---
Subjective Progress Note Date: 01/06/25 Principal diagnosis: Reason for follow-up is multiple skin abscesses Patient is a 74-year-old female with a past medical history significant for reflux osteoarthritis in this patient who did have right hip and bilateral knee replacement presenting to the hospital for evaluation of weakness and fatigue, patient did have multiple skin abscesses prompting this consultat ion. On today's evaluation that is 01/06/2025, the patient continues to be afebrile, the patient is on room air and breathing comfortably, the Pt denies having any chest pain or cough, the patient denies having any abdominal pain no vomiting or any diarrhea, overall pain and drainage to this condition has decreased. Patient white count is 8.83, creatinine 0.74 culture has been negative so far biopsy report pending Objective - Vital Signs Vital signs: Vital Signs Temp 98.5 F 01/06/25 16:00 Pulse 78 01/06/25 16:00 Resp 18 01/06/25 16:00 BP 152/73 01/06/25 16:00 Pulse Ox 98 01/06/25 16:00 FiO2 Intake & Output 01/06/25 01/06/25 01/07/25 06:59 18:59 06:59 Intake Total 236 Output Total 400 Balance -400 236 Weight 78.7 kg Intake: Oral 236 Output: Urine 400 Other: Voiding Method Toilet Toilet # Voids 2 2 # Bowel Movements 2 - Exam GENERAL DESCRIPTION: An elderly female lying in bed in no distress RESPIRATORY SYSTEM: Unlabored breathing , decreased breath sounds at bases HEART: S1 S2 regular rate and rhythm , ABDOMEN: Soft , no tenderness EXTREMITIES: Small abscesses on the bilateral forearm drying out - Labs CBC & Chem 7: 01/06/25 06:51 01/06/25 07:07 Labs: Abnormal Lab Results - Last 24 Hours (Table) 01/06/25 01/06/25 Range/Units 06:51 07:07 RBC 3.04 L (4.10-5.20) 10*6/uL Hgb 7.5 L (12.0-15.0) g/dL Hct 25.0 L (37.2-46.3) % MCH 24.7 L (27.0-32.0) pg MCHC 30.0 L (32.0-37.0) g/dL Plt Count 453 H (140-440) 10*3/uL MPV 8.7 L (9.5-12.2) fL Immature Gran # 0.05 H (0.00-0.04) 10*3/uL Neutrophils # 8.00 H (1.80-7.70) 10*3/uL Lymphocytes # 0.67 L (0.90-5.00) 10*3/uL Monocytes # 0.09 L (0.20-1.00) 10*3/uL Eosinophils # 0.00 L (0.04-0.35) 10*3/uL Sodium 135 L (137-145) mmol/L Glucose 141 H (74-99) mg/dL Calcium 8.2 L (8.4-10.2) mg/dL Microbiology - Last 24 Hours (Table) 01/03/25 13:40 Blood Culture - Preliminary Blood 01/03/25 14:49 Gram Stain - Final Back Wound Culture - Final Assessment and Plan (1) Abscess Current Visit: Yes Status: Acute Code(s): L02.91 - CUTANEOUS ABSCESS, UNSPECIFIED SNOMED Code(s): 017703521 Plan: 1patient with multiple skin abscesses apparently started following the right upper back that has spontaneous rupture now with multiple small abscesses to the bilateral upper extremity and right thigh area highly clinically suspicious for Staphylococcus skin soft tissue infection 2-blood and local cultures-has been obtained which are so far negative we will try to obtain the culture from her PCP office 3-patient is afebrile white count has normalized, keep in mind overall impro vement on the vancomycin to continue family the bedside multiple question answered Dictation was produced using [employer] dictation software. please excuse any grammatical, word or spelling errors. Time with Patient: Less than 30
[2025-01-07 02:06] VITALS: RESP 16
[2025-01-07 07:54] VITALS: BP 158/66; PULSE 72; TEMP 97.7
--- NOTE | 2025-01-07 11:52 | P.PN ---
Subjective Progress Note Date: 01/07/25 Patient is a 74-year-old female present to the emergency department back on 01/03/2025. She was complaining of increased weakness and fatigue with exertional dyspnea. She did have some outpatient labs concerning for anemia. Endorses blood-tinged loose stools. Of note, patient has developed diffuse cuta neous papular nodular lesions involving her bilateral lower extremities, bilateral upper extremities, and back. Erythemic and painful, some have spontaneous erupted and have purulent drainage. Did have a isolated fever 102.1 F outside of the hospital. Possibly erythema nodosum. Denies history of autoimmune diseases. Does suffer from IBS and has been treated for colitis. She sees Dr. Tj Ladd. Dr. Vaca did biopsy a lesion on her back. She has been started on IV vancomycin. A pulmonary consultation was placed for exertional dyspnea. Patient currently being evaluated in the cardiac stepdown unit. She is resting comfortably on room air. Does endorse exertional dyspnea over the last 1 to 1-1/2 weeks. Denies URI-like symptoms. Denies cough. Denies chest pain. Denies heart palpitations, being lightheaded, or syncope. Denies any history COPD, asthma. Did have a chest x-ray which did not show any acute cardiopulmonary process. Patient is anemic with a hemoglobin as low as 7.2 g/dL. She has been having blood-tinged loose bowel movements. Denies any abdominal pain. Denies any nausea or vomiting. Reportedly scheduled for colonoscopy later today. CBC: WBC count 8.4, hemoglobin 7.2 g/dL, platelets 369. BMP is unremarkable, electrolytes WDL, creatinine 0.69, glucose 86. CRP 8.5. Rheumatoid factor less than 15. CRISTINE screen negative. current vital signs: Temperature 97.9 F, heart rate 75 bpm, blood pressure 127/78 mmHg, nontachypneic, SpO2 was recorded at 98% on room air. The patient is seen today January 06, 2025 in follow-up on the selective care unit. She is currently sitting up in chair at the bedside. Awake and alert in no acute distress. Maintaining good O2 saturations in the 90s on room air oxygen. She has been afebrile. Hemodynamically stable. She did undergo colonoscopy yesterday that revealed severe colitis involving the sigmoid colon extending from 20 to 35 cm with cobblestoning of the mucosa, friability with spontaneous oozing and bleeding suspicious for inflammatory bowel disease. Many biopsies were taken. Her diet was advanced to full liquids. She had also undergone a skin biopsy of the suspected pyoderma gangrenosum and erythema nodosum. She has been initiated on Solu-Medrol 20 mg every 8 hours. Blood cultures revealing no growth. Wound culture revealed no growth. White count 8.8. Hemoglobin 7.5. Platelets 453. Sodium 135. Potassium 4.2. Bicarb 25. BUN 8. Creatinine 0.74. Glucose 141. She remains on heparin for DVT prophylaxis. Continued on Protonix. Remains on vancomycin per ID service. Vancomycin trough 13.5. C. difficile screen was negative. Hepatitis screen was negative. The patient is seen today January 07, 2025 in follow-up on the selective care unit. She is currently resting in bed. Awake and alert in no acute distress. Maintaining good O2 saturations in the 90s on room air oxygen. She has been afebrile. Hemodynamically stable. Blood culture revealed no growth. Wound cultures revealed no growth. Skin biopsy cytology pending. Colon biopsies pending. She remains on Solu-Medrol 20 mg every 8 hours. Continued on normal saline at 75 mL/h. Remains on vancomycin per ID service. Heparin for DVT prophylaxis. Objective - Vital Signs Vital signs: Vital Signs Temp 97.7 F 01/07/25 07:53 Pulse 72 01/07/25 07:53 Resp 16 01/07/25 07:53 BP 158/66 01/07/25 07:53 Pulse Ox 97 01/07/25 07:53 FiO2 Intake & Output 01/06/25 01/07/25 01/07/25 18:59 06:59 18:59 Intake Total 236 188 Balance 236 188 Weight 78.8 kg Intake: IV 8 Invasive Line 3 8 Oral 236 180 Other: Voiding Method Toilet Toilet Toilet # Voids 2 3 - Exam GENERAL EXAM: Alert, pleasant 74-year-old female, resting in bed, on room air oxygen, comfortable in no apparent distress. HEAD: Normocephalic and atraumatic EYES: Normal reaction of pupils, equal size. NOSE: Clear with pink turbinates. THROAT: No erythema or exudates. NECK: No masses, no JVD. CHEST: No chest wall deformity. LUNGS: Equal air entry with no crackles, wheeze, rhonchi or dullness. No conversational dyspnea or accessory muscle use. CVS: S1 and S2 normal with no audible murmur, regular rhythm. No extra heart sounds ABDOMEN: No hepatosplenomegaly, active bowel sounds, no guarding or rigidity. SPINE: No scoliosis or deformity SKIN: Erythemic, painful, papular nodular lesions involving the lower extremities, upper extremities, and back. Few lesions with purulent drainage. CENTRAL NERVOUS SYSTEM: No focal deficits, tone is normal in all 4 extremities. EXTREMITIES: There is no peripheral edema, clubbing, or cyanosis. Peripheral pulses are intact. - Labs CBC & Chem 7: 01/06/25 06:51 01/06/25 07:07 Labs: Microbiology - Last 24 Hours (Table) 01/03/25 13:40 Blood Culture - Preliminary Blood Assessment and Plan Assessment: Tender, subcutaneous nodules, distribution involving the bilateral lower extremities, upper extremities, and back. One of the lesions was biopsied 01/05/2025 and microbiology is pending. Patient was placed on IV vancomycin. Cultures revealed no growth. Suspect erythema nodosum and questionable pyoderma gangrenosum. Culture revealed no growth. Biopsy results pending. Initiated on Solu-Medrol History of IBS, status post colonoscopy 01/05/2025 and was found to have severe colitis involving the sigmoid colon extending from 20 to 35 cm with cobblestoning of the mucosa, friability spontaneous oozing and bleeding suspicious for inflammatory bowel disease. Biopsy results pending Anemia, hemoglobin 7.5 g/dL Exertional dyspnea, likely secondary to above Plan: The patient was seen and evaluated Cultures and medications reviewed Colonoscopy biopsies results are pending Skin wound biopsy pending Wound culture revealed no growth Currently on vancomycin per ID service To be continued on prednisone at discharge Plan is to start Biologics in the outpatient setting Remains stable and on room air oxygen Cleared for discharge from the pulmonary standpoint To follow-up closely with Dr. Tj Ladd This patient was seen independently by the pulmonary nurse practitioner addressing pulmonary issues I have personally seen and examined the patient, performed the documentation and the assessment and plan as written. Number of minutes spent on the visit: 24 Dictation was produced using [employer] dictation software. Please excuse any grammatical, word or spelling errors.
--- NOTE | 2025-01-07 13:02 | P.PN ---
Subjective This is a pleasant 74 years old female who was sent by her PCP for low hemoglobin related to rectal bleeding and bleeding from multiple skin blisters that started about 2 to 3 weeks ago. She has multiple blisters about 13 of them, they are large about 1 to 2 inches in diameter 1 in the left arm forearm which is biopsy, 1 in the right knee which has not popped yet, 1 in the right arm, 2 on the back and 1 on the lateral thigh. They are painful but when they pop up they become painless. She has been evaluated by GI team she underwent colonoscopy on 12/05 yesterday showing severe colitis in the sigmoid colon with cobblestone appearance suspicio us for inflammatory bowel disease and patient was started on IV Solu-Medrol. While the skin lesions are suspicious for the pyoderma gangrenosum. She is covered with IV vancomycin, ID team following. General surgery also following status post left skin biopsy which is pending Patient denies any GI symptoms like abdominal pain or vomiting. She tolerates little liquid diet and she is going to be advanced to solid. She has loose 2-3 bowel movement yesterday, mildly painful, mild 01/07 Patient feels comfortable Sitting in chair pleasant relaxed and multiple family members at bedside No blood in bowel movement, she had good bowel movement last night No abdominal pain She still have multiple skin lesions and right knee blister still did not ruptured yet. Mildly painful Patient was cleared for discharge by pulmonary on prednisone and follow-up outpatient Continue with IV Solu-Medrol and IV vancomycin and normal saline 75 L/h for now Objective - Vital Signs Vital signs: Vital Signs Temp 97.7 F 01/07/25 07:53 Pulse 72 01/07/25 07:53 Resp 16 01/07/25 07:53 BP 158/66 01/07/25 07:53 Pulse Ox 97 01/07/25 07:53 FiO2 Intake & Output 01/06/25 01/07/25 01/07/25 18:59 06:59 18:59 Intake Total 236 8 Balance 236 8 Weight 78.8 kg Intake: IV 8 Invasive Line 3 8 Oral 236 Other: Voiding Method Toilet Toilet Toilet # Voids 2 3 - Exam GENERAL: The patient is alert and oriented x3, not in any acute distress. Well developed, well nourished. HEENT: Pupils are round and equally reacting to light. EOMI. No scleral icterus. No conjunctival pallor. Normocephalic, atraumatic. No pharyngeal erythema. No thyromegaly. CARDIOVASCULAR: S1 and S2 present. No murmurs, rubs, or gallops. PULMONARY: Chest is clear to auscultation, no wheezing , no crackles. ABDOMEN: Soft, nontender, nondistended, normoactive bowel sounds. No palpable organomegaly. MUSCULOSKELETAL: No joint swelling or deformity. EXTREMITIES: No cyanosis, clubbing, or pedal edema. NEUROLOGICAL: Gross neurological examination did not reveal any focal deficits. -SKIN: No rashes. no petechiae. Multiple skin lesions and nodules including the extremities, back, most of them are popped up with little oozing of blood. - Labs CBC & Chem 7: 01/06/25 06:51 01/06/25 07:07 Labs: Microbiology - Last 24 Hours (Table) 01/03/25 13:40 Blood Culture - Preliminary Blood Assessment and Plan Assessment: Inflammatory bowel disease with severe colitis involving the sigmoid colon suspicious for Crohn disease versus ulcerative colitis Pyoderma gangrenosum Staphylococcal skin infection is also suspected Acute on chronic anemia Plan: Continue with IV Solu-Medrol Continue IV vancomycin Continue with IV hydration GI team consult Infectious disease team consult General Surgery team consult ordered skin biopsy, left arm lesion skin biopsy: Pending GI prophylaxis: Protonix Resume rest of medication DVT prophylaxis: Subcutaneous heparin Recommended physical therapy Prognosis guarded
--- NOTE | 2025-01-07 14:56 | P.PN ---
Subjective Progress Note Date: 01/07/25 Principal diagnosis: Reason for follow-up is multiple skin abscesses Patient is a 74-year-old female with a past medical history significant for reflux osteoarthritis in this patient who did have right hip and bilateral knee replacement presenting to the hospital for evaluation of weakness and fatigue, patient did have multiple skin abscesses prompting this consultat ion. On today's evaluation that is 01/08/2024, patient did have a temperature of 97.7 F this morning and denies having any chills, patient is on room air and breathing comfortably no chest pain or cough, the patient did not have any nausea vomiting abdominal pain or any diarrhea overall skin lesion had decreased in intensity. No new lab has been obtained today cultures came back negative Objective - Vital Signs Vital signs: Vital Signs Temp 97.7 F 01/07/25 07:53 Pulse 72 01/07/25 07:53 Resp 16 01/07/25 07:53 BP 158/66 01/07/25 07:53 Pulse Ox 97 01/07/25 07:53 FiO2 Intake & Output 01/06/25 01/07/25 01/07/25 18:59 06:59 18:59 Intake Total 236 188 Balance 236 188 Weight 78.8 kg Intake: IV 8 Invasive Line 3 8 Oral 236 180 Other: Voiding Method Toilet Toilet Toilet # Voids 2 3 - Exam GENERAL DESCRIPTION: An elderly female lying in bed in no distress RESPIRATORY SYSTEM: Unlabored breathing , decreased breath sounds at bases HEART: S1 S2 regular rate and rhythm , ABDOMEN: Soft , no tenderness EXTREMITIES: Small abscesses on the bilateral forearm drying out - Labs CBC & Chem 7: 01/06/25 06:51 01/06/25 07:07 Labs: Microbiology - Last 24 Hours (Table) 01/03/25 13:40 Blood Culture - Preliminary Blood Assessment and Plan (1) Abscess Status: Acute Code(s): L02.91 - CUTANEOUS ABSCESS, UNSPECIFIED SNOMED Code(s): 681655592 Plan: 1patient with multiple skin abscesses apparently started following the right upper back that has spontaneous rupture now with multiple small abscesses to the bilateral upper extremity and right thigh area highly clinically suspicious for Staphylococcus skin soft tissue infection 2-blood and local cultures-has been obtained which are so far negative, patient did have draining wound on the right lateral thigh which has been cultured 3-patient is afebrile white count has normalized, patient feeling better wants to go home we will send a prescription for oral Zyvox and close outpatient follow-up on the repeat culture as well as biopsy report question concern answered Dictation was produced using [employer] dictation software. please excuse any gram matical, word or spelling errors. Time with Patient: Less than 30
== END 2025-01-07 14:05 | disposition home health service (06) | DRG 386 ==
LOC: EC 12:05 → 3SCARD 14:35
PROVIDERS: ADMIT Hospitalist; ATTEND Hospitalist
PROC: 0DBN8ZX Excision of Sigmoid Colon, Via Natural or Artificial Opening Endoscopic, Diagnostic (ICD-10-PCS; 2025-01-05)
PROC: 0HBCXZX Excision of Left Upper Arm Skin, External Approach, Diagnostic (ICD-10-PCS; principal; 2025-01-05 08:40)
DX: K50.111 Crohn's disease of large intestine with rectal bleeding (principal); L02.818 Cutaneous abscess of other sites; L88 Pyoderma gangrenosum; D64.9 Anemia, unspecified; G25.81 Restless legs syndrome; L08.9 Local infection of the skin and subcutaneous tissue, unspecified; R06.09 Other forms of dyspnea; B95.8 Unspecified staphylococcus as the cause of diseases classified elsewhere; Z80.49 Family history of malignant neoplasm of other genital organs; Z96.653 Presence of artificial knee joint, bilateral
CPT/HCPCS: 36415; 45380; 71046; 80048; 80053; 80202; 81003; 82728; 83540; 83550; 83605; 83735; 85025; 85610; 85652; 85730; 86038; 86140; 86431; 86480; 86704; 86803; 87040; 87070; 87075; 87205; 87324; 87340; 88305; 93005; 96361; 96365; 96366; 96367; 96372; 96375; 96376; 99285